=== PATIENT | male | born 1960 | race Caucasian/White ===

== ENCOUNTER 2024-12-27 07:54 | Outpatient (REF) | payer OTHER, SELFPAY ==
--- OUTSIDE RECORDS SUMMARY | 2024-12-27 07:59 | XMS_ITS | Encounter Summary ---
Author Organization [facility] Address [address] [facility] [address] [place] [address] Phone Care Team Providers Care Home Health Attendant Name Role Phone Roderick Avina NP Primary Care Provide r Encounter Details Date Type Department Care Team (Late st Contact Info) Description 02/24/2024 Procedure Pass [facility] [address] [place] [address] Social History Tobacco Use Types Packs/Day Years Used Date Smoking Tobacco: Never Smokeless Tobacco: Never Education Answer Date Recorded Are you interested in more education? Not on maximiliano e 02/16/2024 Are you concerned about learning? Not on file 02/16/2024 No 02/16/2024 No 02/16/2024 Food Answer Date Recorded Within the past 6 months we worried whether our food would run out before we got money to buy more. Never True 02/24/2024 Within the past 6 months the food we bought just didn't last and we didn't have enough money to get more. Never True Residential Stability Answer Date Recor ded What is your housing situation today? I have cleve sing 02/24/2024 How many times have you move d in the past 12 months? Zero (I did not move) 02/24/2024 Paying for Meds Answer Date Recorded Do you have trouble paying for medicines? No 02/24/2024 Paying Utility Bills Answer Date Record ed Do you have trouble paying your heating or elect ricity bill? No 02/24/2024 Transportation Answer Date Recorded Has the lack of transportati on kept you from medical appointments or from getting medications? No 02/24/2024 Digital Access Answer Date Recorded No 02/24/2024 Yes 02/24/2024 Do you have reliable internet access at home? Ye s 02/24/2024 Do you have a device (e.g., phone, tablet, computer) with a working camera? Yes 02/24/2024 Intimate Partner Violence Answer Date R ecorded Are you denied basic needs s uch as food, clothing, or medical care? No 02/24/2024 In the past 12 months have y ou been in a relationship with a person who hurts, threatens, or tries to control you? No 02/24/2024 Are you denied basic needs s uch as food, clothing, or medical care? No 02/24/2024 In the past 12 months have y ou been in a relationship with a person who hurts, threatens, or tries to control you? No 02/24/2024 Sex and Gender Information Value Date Recorded Sex Assigned at Not on file Gender Identity Not on file Sexual Orientation Not on file documented as of this encounter Plan of Treatment Upcoming Encounters Date Type Department Care Team (Late st Contact Info) Description 01/03/2025 8:45 AM EDT Office Visit [facility] [address] [address] Sukh Salamanca DO [address] [place] [phone] [email or web address] documented as of this encounter Visit Diagnoses Not on filedocumented in this encounter Care Teams Home Health Attendant Relationship Specialty Start Date End Date Roderick Avina NP [address] [place] [address] PCP - General Nurse Practitioner 02/16/24 documented as of this encounter Additional Source Comments The information contained in this document represents components of the legal health record. It is not the complete legal health record.[facility]
--- OUTSIDE RECORDS SUMMARY | 2024-12-27 07:59 | XMS_ITS ---
Author Name [facility] [facility] Address [address] [place] [address] Care Team Providers Care Mechanical Lead Name Role Phone RENEE POWERS Primary Care Provider Unavaila ble Selected Encounter This section includes the information on record at [place] for the Encounter. Date/Time Encounter Type Encounter Description Reason Provider Source Nov 18, 2024 10:00 AM TYMPANOMETRY AUDIOLOGY ICD-10-CM H90.3 Sensorineural hearing loss, bilateral GARCIA,KIMBERL Y ALLEY IHE Encounter Template Text not used by [place] Assessments - Encounter Diagnoses This section includes the primary and secondary diagnoses documented for the Encounter. Date/Time Primary/Secondary Diagnosis Diagnosis Name Provider Source Nov 18, 2024 10:49 AM PRIMARY Sensorineural hearing loss, bilateral GARCIA,KIMBERL Y ALLEY [facility] Plan of Treatment: Future Appointments (+ 6 months) and Future Tests (+/- 45 days) The Plan of Treatment section includes future care activities for the patient from all [place] treatmentfacilities. This section includes future appointments and future orders which are active, pending or scheduled. Future Appointments This section includes appointments that were scheduled to occur 6 months from the date of the Encounter, up to a maximum of 20 appointments. The data comes from all [place] treatment facilities. Appointment Date/Time Appointment Type Appointme nt Facility Name Dec 09, 2024 09:30 AM [place] [facility] [place] Dec 09, 2024 10:30 AM [place] [facility] [place] [facility] Dec 21, 2024 10:30 AM [place] [facility] [place] [facility] Dec 27, 2024 08:15 AM [place] [facility] [place] [facility] January 31, 2025 09:00 AM [place] [facility] [place] [facility] Active, Pending, and Scheduled Orders This section includes a listing of several types of active, pending, and scheduled orders, including clinic medications orders, diagnostic test orders, procedure orders and consult orders; where the start date of the order is 45 days before the date of the Encounter or 45 days after the date of theEncounter. The data comes from all [place] treatment facilities. Test Date/Time Test Type Test Details Facility Name Oct 26, 2024 11:47 AM Consult Order [facility] Cons Classification Control Clerk's Choice [place] [facility] [place] [facility] Nov 18, 2024 10:50 AM Consult Order OTOLARYNGO LOGY/ENT ONE Cons Classification Control Clerk's Choice [facility] [place] [facility] Nov 29, 2024 07:45 AM Consult Order [facility]NEUROLOGY Cons Classification Control Clerk's Choice [facility] [place] [facility] Dec 21, 2024 11:01 AM Consult Order [facility]-OPTOMETRY ROUTINE EYE EXAM Cons Classification Control Clerk's Choice [facility] [place] [facility] Dec 21, 2024 11:01 AM Consult Order [facility]-UROLOGY Cons Classification Control Clerk's Choice [facility] [place] [facility] Dec 21, 2024 11:01 AM Consult Order [facility]-CUSTOMS AND IMMIGRATION OFFICER Cons Classification Control Clerk's Choice [place] [facility] [place] [facility] Lab Results: +/- 30 days of the encounter This section includes the Chemistry and Hematology Lab Results on record with [place] for the patient. Radiology Reports and Pathology Reports are provided separately, in subsequent sections. Lab Results This section contains the Chemistry/Hematology Results that were resulted 30 days before or 30 daysafter the date of the Encounter. Date/Time Source Result Type Result - Unit Interpretation Reference Range Specimen Type Comment Dec 09, 2024 11:16 AM [place] [facility] [place] [facility] CBC BLOOD Specimen Type: BLOOD No comment entered. Ordering Provider: RENEE POWERS Report Released Date/Time: Dec 09, 2024 10:01 AM Reporting Lab: [facility] [address] [facility] [address] Performing Lab: [facility] [address] [facility] [address] WBC 7.37 10*3/uL 4.50-11.00 RBC 4.64 10*6/uL 4.23-5.66 HGB 14.2 g/dL 12.8-17 HCT 41.5 39.2-50.4 MCV 89.4 fL 82-99 MCHC 34.2 g/dL 30.8-35.1 PLT 239 10*3/uL 140-360 MPV 9.8 fL 9.2-12.4 RDW-CV 12.6 12.0-16.0 MCH 30.6 pg 26.2-32.6 Dec 09, 2024 11:16 AM [facility] BASIC METABOLIC PANEL (non-fasting) SERUM Spe cimen Type: SERUM No comment entered. Ordering Provider: RENEE POWERS Report Released Date/Time: Dec 09, 2024 10:01 AM Reporting Lab: [facility] [address] [facility] [address] Performing Lab: [address] [address] UREA NITROGEN 16 mg/dL 7-25 GLUCOSE 100 mg/dL 65-100 SODIUM 139 mmol/L 135-145 POTASSIUM 4.8 mmol/L 3.5-5.0 CHLORIDE 107 mmol/L 100-110 CO2 22 meq/L 20-30 CALCIUM 9.1 mg/dL 8.5-10.2 CREATININE, Serum 0.88 mg/dL 0.50-1.40 eGFR(CKD-EPI 2020) >90 mL/min >60 Dec 09, 2024 11:16 AM [facility] LIPID PANEL, NON FASTING SERUM Specimen Type: SERUM No comment entered. Ordering Provider: RENEE POWERS Report Released Date/Time: Dec 09, 2024 10:01 AM Reporting Lab: [facility] [address] [facility] [address] Performing Lab: [facility] [address] [facility] [address] CHOLESTEROL 120 mg/dL TRIGLYCERIDE 44 mg/dL 0-150 LDL calculated 37 mg/dL 0-129 CHOL/HDL 1.6 HDL CHOLESTEROL 74 mg/dL H 40-60 Dec 09, 2024 11:[address] [facility] LIVER FUNCTION SERUM Specimen Type: SERUM No comment entered. Ordering Provider: RENEE POWERS Report Released Date/Time: Dec 09, 2024 10:01 AM Reporting [facility] [address] [address] Performing Lab: [address] [address] PROTEIN,TOTAL 7.6 g/dL 6.0-8.3 ALBUMIN 4.2 g/dL 3.5-5.0 ALKALINE PHOSPHATASE 63 U/L 40-150 AST 32 U/L 5-34 ALT 37 U/L BILIRUBIN, TOTAL 0.5 mg/dL 0.2-1.2 Dec 09, 2024 11:16 AM [facility] PSA SERUM Specimen Type: SERUM No comment entered. Ordering Provider: RENEE POWERS Report Released Date/Time: Dec 09, 2024 10:01 AM Reporting Lab: [address] [address] Performing Lab: [facility] [address] PSA 4.52 ng/mL H 0.00-4.00 Dec 09, 2024 11:16 AM [facility] VITAMIN B12 SERUM Specimen Type: SERUM No comment entered. Ordering Provider: RENEE POWERS Report Released Date/Time: Dec 09, 2024 10:01 AM Reporting Lab: [facility] [address] [facility] [address] Performing Lab: [facility] [address] VITAMIN B12 1096 pg/mL H 200-900 Social History: Smoking Status (Most current) and Tobacco Use (All prior to encounter date) This section includes the most current, and the historical, smoking and tobacco- related health factors from the [place] facility where the Encounter took place. Current Smoking Status This section includes the most current smoking, or tobacco-related health factor, from the [place] facility where the Encounter took place. Date/Time Current Smoking Status Comment Facil ity Jun 22, 2024 11:00 AM [facility]-TOBACCO NEVER USED [facility] [place] [facility] Tobacco Use History This section includes a history of the smoking, or tobacco-related health factors, that were collected on or before the date of the Encounter. The data comes from the [place] facility where the Encounter took place. Date/Time Smoking Status/Tobacco Use Comment F acility Jul 17, 2023 11:00 AM VA-TOBACCO NEVER USED [facility] [place] [facility] Jul 18, 2022 08:30 AM VA-TOBACCO NEVER USED [facility] [place] [facility] Mar 27, 2021 11:30 AM VA-TOBACCO NEVER USED [facility] [place] [facility] Nov 29, 2019 08:24 AM VA-TOBACCO NEVER USED [facility] [place] [facility] Sep 24, 2018 07:45 AM VA-TOBACCO NEVER USED [facility] [place] [facility] Encounter Notes: All associated encounter notes This section contains the clinical notes associated to the Encounter. Date/Time Encounter Note(s) Provider Source Nov 18, 2024 07:27 AM AUDIOLOGY E & M NOTE: LOCAL TITLE: AUDIOLOGY CLINIC STANDARD TITLE: AUDIOLOGY E & M NOTE DATE OF NOTE: NOV 18, 2024@07:27 ENTRY DATE: NOV 18, 2024@07:27:25 AUTHOR: CALEB GARCIA COSIGNER: URGENCY: STATUS: COMPLETED Dx CODE: H90.3-Sensorineural Hearing Loss, Bilateral APPOINTMENT TYPE: Hearing Evaluation BACKGROUND/HISTORY: was seen 11/18/24 for an initial hearing evaluation appointment. [facility] reports he is here to get a baseline hearing test. His tells him he has the television too loud, however he denies any hearing difficulties. He does not notice a difference in hearing between the ears. He reports occasional bilateral tinnitus and denies concerns of vertigo. He denies a history of ear infections or surgeries on the ears. 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 He denies occupational noise exposure. He is positive for recreational noise exposure (target shooting, motorcycles, hunting). ASSESMENT: Results of today's testing are as follows: Otoscopy was WNL bilaterally. Normal tympanograms obtained bilaterally. Pure tone audiometric testing under headphones in the right ear revealed hearing WNL through 3 kHz sloping to a moderate SNHL. Testing in the left ear revealed hearing WNL through 2 kHz sloping to a severe SNHL. Rechecked with inserts. SRT WORD RECOGNITION (Recorded [place] [facility] / Word List) Right 10dBHL 96% @ 60dBHL/35dBm Left 15dBHL 100% @ 60dBHL/35dBm CLINICAL IMPRESSIONS: Asymmetrical sensorineural hearing loss, left ear poorer. [facility] is NOT interested in amplification, however consult with ENT is still recommended. EDUCATION/COUNSELING: The patient was counseled re: today's hearing test results. He demonstrated satisfactory understanding of the education and plan, and was given the opportunity to ask questions throughout today's visit. PLAN: 1. ENT consult placed due to asymmetrical sensorineural hearing loss, left ear poorer. 2. Hearing re-evaluation in 3-5 years, or sooner if change in hearing occurs. * Patient Education Education provided on the following topics: Hearing test results Education provided to: P Response to Education: VU [place] Patient P Family F Significant Other SO Verbalizes Understanding VU Returns Demonstration RD Performs Independently PI Lacks Comprehension LC Refused Education RE Not Applicable NA * /rain/ CALEB GARCIA STAFF MACHINE II TRIMMER Signed: 11/18/2024 10:49 CALEB GARCIA [facility] [place] [facility]
--- OUTSIDE RECORDS SUMMARY | 2024-12-27 07:59 | XMS_ITS | Encounter Summary ---
Author Organization [facility] Address [address] [facility] [address] [place] [address] Phone Care Team Providers Care Program Trainer Name Role Phone Roderick Avina NP Primary Care Provide r Encounter Details Date Type Department Care Team (Late st Contact Info) Description 02/24/2024 Procedure Pass [facility], [address] [address] Social History Tobacco Use Types Packs/Day Years [...] Description 01/03/2025 8:45 AM EDT Office Visit [facility] [address] [place] [phone] Sukh Salamanca DO [address] [address] [email or web address] documented as of this encounter Visit Diagnoses Not on filedocumented in this encounter Care Teams Program Trainer Relationship Specialty Start Date End Date Roderick Avina NP [address] [place] [address] PCP - General Nurse Practitioner 02/16/24 documented as of this encounter Additional Source Comments The information contained in this document represents components of the legal health record. It is not the complete legal health record.[facility]
--- OUTSIDE RECORDS SUMMARY | 2024-12-27 07:59 | XMS_ITS | Encounter Summary ---
Author Organization [facility] Address [address] [facility] [address] [place] [address] Phone Care Team Providers Care Supervisor Public Message Service Name Role Phone Roderick Avina NP Primary Care Provide r Encounter Details Date Type Department Care Team (Late st Contact Info) Description 02/24/2024 Procedure Pass [facility], Ct Scan - [address] [address] Social History Tobacco Use Types Packs/Day Years [...] Description 01/03/2025 8:45 AM EDT Office Visit [facility] [address] [place] [address] Sukh Salamanca DO [address] [place] [address] [email or web address] documented as of this encounter Visit Diagnoses Not on filedocumented in this encounter Care Teams Supervisor Public Message Service Relationship Specialty Start Date End Date Roderick Avina NP [address] [place] [address] PCP - General Nurse Practitioner 02/16/24 documented as of this encounter Additional Source Comments The information contained in this document represents components of the legal health record. It is not the complete legal health record.[facility]
--- OUTSIDE RECORDS SUMMARY | 2024-12-27 07:59 | XMS_ITS | Encounter Summary ---
Author Name [facility] Address [address] [place] [address] Care Team Providers Care Clinical Dermatologist Name Role Phone RODERICK AVINA Primary Care Provider Unavaila ble Selected Encounter This section includes the information on record at [facility] for the Encounter. Date/Time Encounter Type Encounter Description Reason Provider Source Nov 14, 2024 08:00 AM SELF CARE MNGMENT TRAINING OCCUPATIONAL THERAPY ICD-10-CM M79.602 Pain in left arm MADELINE JEAN BAPTISTE E IHE Encounter Template Text not used by [place] Assessments - Encounter Diagnoses This section includes the primary and secondary diagnoses documented for the Encounter. Date/Time Primary/Secondary Diagnosis Diagnosis Name Provider Source Nov 14, 2024 11:37 AM PRIMARY Pain in left arm MADELINE JEAN BAPTISTE [facility] Plan of Treatment: Future Appointments (+ 6 months) and Future Tests (+/- 45 days) The Plan of Treatment section includes future care activities for the patient from all [place] treatmentfacilities. This section includes future appointments and future orders which are active, pending or scheduled. Future Appointments This section includes appointments that were scheduled to occur 6 months from the date of the Encounter, up to a maximum of 20 appointments. The data comes from all [place] treatment facilities. Appointment Date/Time Appointment Type Appointme nt Facility Name Nov 18, 2024 10:00 AM [facility] [place] [facility] Dec 09, 2024 09:30 AM [facility] [place] [facility] Dec 09, 2024 10:30 AM [facility]IC[facility] [place] [facility] Dec 21, 2024 10:30 AM [facility]ATORY [facility] [place] [facility] Dec 27, 2024 08:15 AM [facility]ULATORY [facility] MEDIC[facility] [place] [facility] January 31, 2025 09:00 AM AMBULATORY - MEDICINE [facility] [place] [facility] Active, Pending, and Scheduled Orders This section includes a listing of several types of active, pending, and scheduled orders, including clinic medications orders, diagnostic test orders, procedure orders and consult orders; where the start date of the order is 45 days before the date of the Encounter or 45 days after the date of theEncounter. The data comes from all [place] treatment facilities. Test Date/Time Test Type Test Details Facility Name Oct 26, 2024 11:47 AM Consult Order COMM[facility]ITY [facility]-MRI [facility] [employer] Electrical Engineer's Choice [facility] [place] [facility] Nov 18, 2024 10:50 AM Consult Order OTOLARYNGO LOGY/ENT ONE Cons [employer] Electrical Engineer's Choice [facility] [place] [facility] Nov 29, 2024 07:45 AM Consult Order [facility]-NEUROLOGY Cons [employer]electric Plant Electrical Engineer's Choice [facility] [place] [facility] Dec 21, 2024 11:01 AM Consult Order [facility]-OPTOMETRY ROUTINE EYE EXAM Cons [employer] Electrical Engineer's Choice [facility] [place] [facility] Dec 21, 2024 11:01 AM Consult Order COMM[facility]ITY [facility]-UROLOGY [employer] Electrical Engineer's Choice [facility] [place] [facility] Dec 21, 2024 11:01 AM Consult Order [facility] DEADENER Cons [employer] Plant Electrical Engineer's Choice [facility] [place] [facility] Lab Results: +/- 30 days of the encounter This section includes the Chemistry and Hematology Lab Results on record with [facility] for the patient. Radiology Reports and Pathology Reports are provided separately, in subsequent sections. Lab Results This section contains the Chemistry/Hematology Results that were resulted 30 days before or 30 daysafter the date of the Encounter. Date/Time Source Result Type Result - Unit Interpretation Reference Range Specimen Type Comment Dec 09, 2024 11:16 AM [facility] CBC BLOOD Specimen Type: BLOOD No comment entered. Ordering Provider: RODERICK AVINA Report Released Date/Time: Dec 09, 2024 10:01 AM Reporting Lab: [facility] [address] [address] Performing Lab: [facility] [address] [facility] [address] WBC 7.37 10*3/uL 4.50-11.00 RBC 4.64 10*6/uL 4.23-5.66 HGB 14.2 g/dL 12.8-17 HCT 41.5 39.2-50.4 MCV 89.4 fL 82-99 MCHC 34.2 g/dL 30.8-35.1 PLT 239 10*3/uL 140-360 MPV 9.8 fL 9.2-12.4 RDW-CV 12.6 12.0-16.0 MCH 30.6 pg 26.2-32.6 Dec 09, 2024 11:16 AM [facility] BASIC METABOLIC PANEL (non-fasting) SERUM Spe cimen Type: SERUM No comment entered. Ordering Provider: RODERICK AVINA Report Released Date/Time: Dec 09, 2024 10:01 AM Reporting Lab: [facility] [address] [facility] [address] Performing Lab: [facility] [address] [facility] [facility] [address] UREA NITROGEN 16 mg/dL 7-25 GLUCOSE 100 mg/dL 65-100 SODIUM 139 mmol/L 135-145 POTASSIUM 4.8 mmol/L 3.5-5.0 CHLORIDE 107 mmol/L 100-110 CO2 22 meq/L 20-30 CALCIUM 9.1 mg/dL 8.5-10.2 CREATININE, Serum 0.88 mg/dL 0.50-1.40 eGFR(CKD-EPI 2020) >90 mL/min >60 Dec 09, 2024 11:16 AM [facility] LIPID PANEL, NON FASTING SERUM Specimen Type: SERUM No comment entered. Ordering Provider: RODERICK AVINA Report Released Date/Time: Dec 09, 2024 10:01 AM Reporting Lab[facility] [address] [facility] [address] Performing Lab: [facility] [address] CHOLESTEROL 120 mg/dL TRIGLYCERIDE 44 mg/dL 0-150 LDL calculated 37 mg/dL 0-129 CHOL/HDL 1.6 HDL CHOLESTEROL 74 mg/dL H 40-60 Dec 09, 2024 11:16 AM [facility] LIVER FUNCTION SERUM Specimen Type: SERUM No comment entered. Ordering Provider: RODERICK AVINA Report Released Date/Time: Dec 09, 2024 10:01 AM Reporting Lab: [facility] [address] [address] Performing Lab: [address] [address] PROTEIN,TOTAL 7.6 g/dL 6.0-8.3 ALBUMIN 4.2 g/dL 3.5-5.0 ALKALINE PHOSPHATASE 63 U/L 40-150 AST 32 U/L 5-34 ALT 37 U/L BILIRUBIN, TOTAL 0.5 mg/dL 0.2-1.2 Dec 09, 2024 11:16 AM [facility] PSA SERUM Specimen Type: SERUM No comment entered. Ordering Provider: RODERICK AVINA Report Released Date/Time: Dec 09, 2024 10:01 AM Reporting Lab: [facility] [address] [facility]: [facility] [address] PSA 4.52 ng/mL H 0.00-4.00 Dec 09, 2024 11:16 AM [facility] VITAMIN B12 SERUM Specimen Type: SERUM No comment entered. Ordering Provider: RODERICK AVINA Report Released Date/Time: Dec 09, 2024 10:01 AM Reporting Lab: [facility] [address] Performing Lab: [facility] [place] [facility] [address] [facility] [address] VITAMIN B12 1096 pg/mL H 200-900 Social History: Smoking Status (Most current) and Tobacco Use (All prior to encounter date) This section includes the most current, and the historical, smoking and tobacco- related health factors from the [place] facility where the Encounter took place. Current Smoking Status This section includes the most current smoking, or tobacco-related health factor, from the [place] facility where the Encounter took place. Date/Time Current Smoking Status Comment Facil ity Jun 22, 2024 11:00 AM [facility]-TO[facility]ACCO NEVER USED [facility] Tobacco Use History This section includes a history of the smoking, or tobacco-related health factors, that were collected on or before the date of the Encounter. The data comes from the [place] facility where the Encounter took place. Date/Time Smoking Status/Tobacco Use Comment F acility Jul 17, 2023 11:00 AM VA-TOBACCO NEVER USED [facility] [place] [facility] Jul 18, 2022 08:30 AM VA-TOBACCO NEVER USED [facility] [place] [facility] Mar 27, 2021 11:30 AM VA-TOBACCO NEVER USED [facility] [place] [facility] Nov 29, 2019 08:24 AM VA-TOBACCO NEVER USED [facility] [place] [facility] Sep 24, 2018 07:45 AM VA-TOBACCO NEVER USED [facility] [place] [facility] Encounter Notes: All associated encounter notes This section contains the clinical notes associated to the Encounter. Date/Time Encounter Note(s) Provider Source Nov 14, 2024 07:13 AM OCCUPATIONAL MEDIC INE CONSULT: [facility] TITLE: CONSULT REPORT/OCCUPATIONAL THERAPY STANDARD TITLE: OCCUPATIONAL MEDICINE CONSULT DATE OF NOTE: NOV 14, 2024@07:13 ENTRY DATE: NOV 14, 2024@07:13:49 AUTHOR: MADELINE JEAN BAPTISTE COSIGNER: RODERICK AVINA URGENCY: STATUS: COMPLETED Initial Evaluation date: Nov Progress Note Date: Treatment #: eval Treatment time: 40 minutes Diagnosis: Pain in left Arm(ICD-10-CM M79.602) Provider: Fabrice OT Treatment Precautions: n/a Patient identified by full name and date of * S: Mr. Luu is a 64 y/o [facility] [place] who was referred to OT for L UE paresthesia's. He was seen in the OT clinic on 11/14/2024. PMH: Active problems - Computerized Problem List is the source for the followin. Cervical radiculopathy 2. Carotid artery stenosis 3. Erectile Dysfunction ([facility] [id number]) 4. GERD - Gastro-Esophageal Reflux Disease ([facility] [id number]) 5. Vitamin B12 Deficiency ([facility] [id number]) 6. Elevated PSA 7. Abnormal glucose level 8. HTN - Hypertension ([facility] [id number]) 9. Low Back Pain ([facility] [id number]) 10. Obesity ([facility] [id number]) 11. Family history of cancer of colon 12. Family history of prostate cancer 13. Colonoscopy normal IVONNE: pt reports that his L hand is very weak and there is discoordination. pt reports that this has been going on for 6 weeks. he woke w/ a really sharp pain in his L shoulder blade. this persisted. he had a massage, ordered a traction device. he reports that the numbness and tingling is sporadic and it seems to come from his shoulder radiating along the triceps. traction made it worse. Imaging: none in CPRS of c-spine/hand-pt reports having MRI of the c-spine yesterday. Pain Level: denies pain currently O: Pt is R hand dominant. 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 He enjoys fishing. Works around the house, fire wood. 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 59# (norm:85#) 15# (norm:80#) 2. 50# 15# 3. 44# 15# Prehension Strength (pinch meter/pounds per pressure) [R] [L] lat: 25# (norm: 19#) 4# (norm: 19#) 2 pt: 14# (norm: 14#) 2# (norm: 13#) 3 pt: 21# (norm: 18#) 1# (norm: 19#) Sensation: pt reports that his hand just feels different, weak. he doesn't currently have paresthesia's, but does experience them nightly. TX: *discussed ordering an EMG/NCV test in order to determine location of nerve damage as well as severity. pt was interested in this as well. *issued pt RIGHT medium wrist cock up splint; instructed to wear during sleep only. pt was able to don/doff I'ly. *issued pt scap squeezes and pec stretch; pt able to r/d and v/u. he understands that if either exercise reproduce pain or paresthesia's, to discontinue. Access Code: [email or web address] URL: [email or web address] Date: 11/14/2024 Prepared by: [facility] Exercises - Seated Scapular Retraction - 1 x daily - 7 x weekly - 3 sets - 10 reps - Doorway Pec Stretch at 60 Elevation - 1 x daily - 7 x weekly - 3 sets - 3 reps - 30 hold ASSESSMENT: Rolando is a 64 y/o male who presents to the OT clinic w/ s/s of brachial plexopathy versus c-radiculopathy as evidenced by pt report, clinical presentation and negative provocative testing. Ulnar nerve distribution is definitely affected d/t severe interosseous atrophy and positive wartenberg's sign. His L neonatal icu coordinator and pinch are significantly reduced as compared to norms. He had a MRI of the c-spine yesterday and is currently awaiting results. Discussed obtaining an EMG/NCV and pt was interested in this as well. Discussed possible referral to PT in the near future once MRI results are reported back. PLAN: No further f/u scheduled at this time. The pt was provided w/ this newswriter's contact information in the event he had any additional questions or concerns. Pt was in agreement w/ this POC. GOALS: 1. pt will be compliant w/ nocturnal splinting 2. pt will report improved paresthesia's/weakness since implementing nocturnal splinting The practitioner's co-signature on this note signifies agreement with plan of care and clinical diagnosis code. /rain/ Madeline Jean Baptiste, MS OTR/L, CHT Occupational Therapist Signed: 11/14/2024 11:39 /rain/ Roderick Avina DNP, CLINICAL RESOURCE COORDINATOR-BC, CNL Primary Care Nurse Practitioner Cosigned: 11/14/2024 12:40 MADELINE JEAN BAPTISTE [facility]
--- OUTSIDE RECORDS SUMMARY | 2024-12-27 07:59 | XMS_ITS ---
Author Name [facility] Organization [facility] Address [address] [place] [address] Care Team Providers Care Accountant Machine Processing Name Role Phone RODERICK AVINA Primary Care Provider Unavaila ble Selected Encounter This section includes the information on record at [facility] for the Encounter. Date/Time Encounter Type Encounter Description Reason Provider Source Dec 21, 2024 10:30 AM OFFICE O/P EST [facility] 40 MIN PRIMARY CARE/MEDICINE ICD-10-CM N40.0 Benign prostatic hyperplasia without lower urinry tract symp KVNG AVINA AM Encounter Template Text not used by [facility] Assessments - Encounter Diagnoses This section includes the primary and secondary diagnoses documented for the Encounter. Date/Time Primary/Secondary Diagnosis Diagnosis Name Provider Source Dec 21, 2024 11:00 AM PRIMARY Benign prostatic hyperplasia without lower urinry tract symp EMERY AVINA [facility] [place] [facility] Dec 21, 2024 11:00 AM SECONDARY Cervical disc disorder w radiculopathy, unsp cervical region EMERY AVINA [facility] [place] [facility] Dec 21, 2024 11:00 AM SECONDARY Elevated prostate specific antigen [PSA] EMERY AVINA [facility] [place] [facility] Dec 21, 2024 11:00 AM SECONDARY Essential (primary) hypertension EMERY AVINA [facility] Dec 21, 2024 11:00 AM SECONDARY Gastro-esophageal reflux disease without esophagitis AVINA,WILL RENU [facility] Dec 21, 2024 11:00 AM SECONDARY Occlusion and stenosis of unspecified carotid artery AVINA,WILL RENU [facility] Plan of Treatment: Future Appointments (+ 6 months) and Future Tests (+/- 45 days) The Plan of Treatment section includes future care activities for the patient from all [facility] [place] This section includes future appointments and future orders which are active, pending or scheduled. Future Appointments This section includes appointments that were scheduled to occur 6 months from the date of the Encounter, up to a maximum of 20 appointments. The data comes from all [facility] facilities. Appointment Date/Time Appointment Type Appointme nt Facility Name Dec 27, 2024 08:15 AM AMBULATORY - MEDICINE [facility] January 31, 2025 09:00 AM AMBULATORY MEDICINE [facility] Jun 22, 2025 10:30 AM AMBULATORY MEDICINE [facility] Active, Pending, and Scheduled Orders This section includes a listing of several types of active, pending, and scheduled orders, including clinic medications orders, diagnostic test orders, procedure orders and consult orders; where the start date of the order is 45 days before the date of the Encounter or 45 days after the date of theEncounter. The data comes from all [facility]. Test Date/Time Test Type Test Details Facility Name Nov 18, 2024 10:50 AM Consult Order OTOLARYNGO LOGY/ENT ONE [employer] [facility] Nov 29, 2024 07:45 AM Consult Order COMMUNITY [facility]ARE-NEUROLOGY [facility] [employer] [facility] Dec 21, 2024 11:01 AM Consult Order COMMUNITY CARE-OPTOMETRY ROUTINE EYE EXAM [facility] [employer] Owner [employer] Choice [facility] Dec 21, 2024 11:01 AM Consult Order COMMUNITY CARE-UROLOGY [facility] [employer] Owner [employer] Driver[employer] Choice [facility] Dec 21, 2024 11:01 AM Consult Order COMMUNITY CARE-MEDICAL BILLING ASSOCIATE [employer] Owner Operator [employer] Driver[employer] Choice [facility] Lab Results: +/- 30 days of the encounter This section includes the Chemistry and Hematology Lab Results on record with [facility] for the patient. Radiology Reports and Pathology Reports are provided separately, in subsequent sections. Lab Results This section contains the Chemistry/Hematology Results that were resulted 30 days before or 30 daysafter the date of the Encounter. Date/Time Source Result Type Result - Unit Interpretation Reference Range Specimen Type Comment Dec 09, 2024 11:16 AM [facility] CBC BLOOD Specimen Type: BLOOD No comment entered. Ordering Provider: RODERICK AVINA Report Released Date/Time: Dec 09, 2024 10:01 AM Reporting Lab: [address] [address] Performing Lab: [address] [address] WBC 7.37 10*3/uL 4.50-11.00 RBC 4.64 10*6/uL 4.23-5.66 HGB 14.2 g/dL 12.8-17 HCT 41.5 39.2-50.4 MCV 89.4 fL 82-99 MCHC 34.2 g/dL 30.8-35.1 PLT 239 10*3/uL 140-360 MPV 9.8 fL 9.2-12.4 RDW-CV 12.6 12.0-16.0 MCH 30.6 pg 26.2-32.6 Dec 09, 2024 11:16 AM [facility] BASIC METABOLIC PANEL (non-fasting) SERUM Spe cimen Type: SERUM No comment entered. Ordering Provider: RODERICK AVINA Report Released Date/Time: Dec 09, 2024 10:01 AM Reporting Lab: [address] [address] Performing Lab: [address] [address] UREA NITROGEN 16 mg/dL 7-25 GLUCOSE 100 mg/dL 65-100 SODIUM 139 mmol/L 135-145 POTASSIUM 4.8 mmol/L 3.5-5.0 CHLORIDE 107 mmol/L 100-110 CO2 22 meq/L 20-30 CALCIUM 9.1 mg/dL 8.5-10.2 CREATININE, Serum 0.88 mg/dL 0.50-1.40 eGFR(CKD-EPI 2020) >90 mL/min >60 Dec 09, 2024 11:16 AM [facility] LIPID PANEL, NON FASTING SERUM Specimen Type: SERUM No comment entered. Ordering Provider: RODERICK AVINA Report Released Date/Time: Dec 09, 2024 10:01 AM Reporting Lab: [facility] [address] [facility] [address] Performing Lab: [address] [address] CHOLESTEROL 120 mg/dL TRIGLYCERIDE 44 mg/dL 0-150 LDL calculated 37 mg/dL 0-129 CHOL/HDL 1.6 HDL CHOLESTEROL 74 mg/dL H 40-60 Dec 09, 2024 11:16 AM [facility] LIVER FUNCTION SERUM Specimen Type: SERUM No comment entered. Ordering Provider: RODERICK AVINA Report Released Date/Time: Dec 09, 2024 10:01 AM Reporting Lab: [address] [address] Performing Lab: [address] [address] PROTEIN,TOTAL 7.6 g/dL 6.0-8.3 ALBUMIN 4.2 g/dL 3.5-5.0 ALKALINE PHOSPHATASE 63 U/L 40-150 AST 32 U/L 5-34 ALT 37 U/L BILIRUBIN, TOTAL 0.5 mg/dL 0.2-1.2 Dec 09, 2024 11:16 AM [facility] PSA SERUM Specimen Type: SERUM No comment entered. Ordering Provider: RODERICK AVINA Report Released Date/Time: Dec 09, 2024 10:01 AM Reporting Lab: [address] [address] Performing Lab: [address] [address] PSA 4.52 ng/mL H 0.00-4.00 Dec 09, 2024 11:16 AM [facility] [place] [facility] VITAMIN B12 SERUM Specimen Type: SERUM No comment entered. Ordering Provider: RODERICK AVINA Report Released Date/Time: Dec 09, 2024 10:01 AM Reporting Lab: [facility] [place] [facility] [address] [facility] [address] Performing Lab: [facility] [place] [facility] [address] [facility] [address] VITAMIN B12 1096 pg/mL H 200-900 Vital Signs: All taken on the encounter date This section contains inpatient and outpatient Vital Signs collected on the date of the Encounter. Date/Time Temperature Pulse Blood Pressure Respiratory Rate SP02 Pain Height Weight Body Mass Index Source Dec 21, 2024 10:18 AM 98.3 70 128/82 20 99 0 71 210 29 [facility] [place] [facility] Social History: Smoking Status (Most current) and Tobacco Use (All prior to encounter date) This section includes the most current, and the historical, smoking and tobacco- related health factors from the [place] facility where the Encounter took place. Current Smoking Status This section includes the most current smoking, or tobacco-related health factor, from the [place] facility where the Encounter took place. Date/Time Current Smoking Status Comment Giulia ity Jun 22, 2024 11:00 AM VA-TOBACCO NEVER USED [facility] [place] [facility] Tobacco Use History This section includes a history of the smoking, or tobacco-related health factors, that were collected on or before the date of the Encounter. The data comes from the [place] facility where the Encounter took place. Date/Time Smoking Status/Tobacco Use Comment F acility Jul 17, 2023 11:00 AM VA-TOBACCO NEVER USED [facility] [place] [facility] Jul 18, 2022 08:30 AM VA-TOBACCO NEVER USED [facility] [place] [facility] Mar 27, 2021 11:30 AM VA-TOBACCO NEVER USED [facility] [place] [facility] Nov 29, 2019 08:24 AM VA-TOBACCO NEVER USED [facility] [place] [facility] Sep 24, 2018 07:45 AM VA-TOBACCO NEVER USED [facility] [place] [facility] Encounter Notes: All associated encounter notes This section contains the clinical notes associated to the Encounter. Date/Time Encounter Note(s) Provider Source Dec 21, 2024 10:47 AM PRIMARY CARE NURSE PRACTITIONER OUTPATIENT NOTE: LOCAL TITLE: NURSE PRACTITIONER OUTPATIENT NOTE STANDARD TITLE: PRIMARY CARE NURSE PRACTITIONER OUTPATIENT NOTE DATE OF NOTE: DEC 21, 2024@10:47 ENTRY DATE: DEC 21, 2024@10:47:13 AUTHOR: RODERICK AVINA COSIGNER: URGENCY: STATUS: COMPLETED Chief complaint: Patient is a 64 year old . HPI: Pleasant male [place] here to follow up. Allergies: DEMEROL, LISINOPRIL The following VA and Non-VA meds were reconciled with patient. The patient was educated on the use of the medications including indication and side effects. Active and Recently Outpatient Medications (excluding Supplies): Active Outpatient Medications Status 1) AMLODIPINE BESYLATE 10MG TAB TAKE ONE TABLET BY MOUTH ONCE ACTIVE DAILY FOR BLOOD PRESSURE/HEART, DO NOT TAKE WITH GRAPEFRUIT JUICE Indication: FOR HIGH BLOOD PRESSURE 2) CLOPIDOGREL BISULFATE 75MG TAB TAKE ONE TABLET BY MOUTH ONCE ACTIVE DAILY 3) CYANOCOBALAMIN 1000MCG TAB TAKE ONE TABLET BY MOUTH ONCE ACTIVE DAILY FOR VITAMIN SUPPLEMENTATION 4) DOXYCYCLINE HYCLATE 100MG TAB TAKE ONE TABLET BY MOUTH TWICE ACTIVE DAILY Indication: TICK 5) OMEPRAZOLE 20MG EC CAP TAKE ONE CAPSULE BY MOUTH EVERY ACTIVE MORNING 30 MINUTES BEFORE BREAKFAST 6) ROSUVASTATIN CA 40MG TAB TAKE ONE TABLET BY MOUTH ONCE DAILY ACTIVE FOR CHOLESTEROL Review of Systems: Constitutional: (-)for Fevers, chills, weakness, nights sweats On examination: 98.3 F [36.8 C] (12/21/2024 10:18)128/82 (12/21/2024 10:18)70 (12/21/2024 10:18)20 (12/21/2024 10:18)0 (12/21/2024 10:18)BMI: 29.4210 lb [95.25 kg] (12/21/2024 10:18) is alert and oriented X3 Cardiovasc: 2plus carotids without bruits, no JVD Heart Reguler rate and rhythm NL S1S2 no S3 or murmur Respiration: Normal respiratory effort, lungs clear ABD: Benign normal active bowel sounds no HSM no rebound or referred pain EXT: no clubbing, edema, or cyanosis All diagnostics from past month were reviewed with patient. Assessment/plan: Active problems - Computerized Problem List is the source for the followin. Benign Prostatic Hypertrophy without Outflow Obstruction - stable, follows [facility]. 2. Cervical radiculopathy - radiates to left arm with numbness, NCS scheduled, mri discussed, consult to physiatry. 3. Carotid artery stenosis - follows with Dr. Salamanca, surgery not advised, being monitored. Continues with plavix. 4. GERD - Gastro-Esophageal Reflux Disease - stable on PPI. 5. Elevated PSA - follows urology, for now, plan is monitor. Noted strong family history. 6. HTN - Hypertension - well controlled. Health Care Maintenance: declines flu vaccine. Today I spent 40 minutes on some or all of the following: chart review, history, physical examination, treatment planning, education and counseling of the patient/family/home visit field care manager, placing orders, communicating with other health care providers, completing health and wellness screenings (see below) and documentation in the electronic health record. Follow up visit in 6 mos. Medication Reconciliation: Outpatient: Has the patient been taking medications as documented in the EMLR? YES: The patient has been taking medications as documented in the EMLR. Essential Medication List for Review used to complete this medication reconciliation. INCLUDED IN THIS LIST: Alphabetical list of active outpatient prescriptions dispensed from this [facility] (local) and dispensed from another [place] or [facility]D facility (remote) as well as inpatient orders (local, pending and active), local clinic medications, locally documented non-VA medications, and local prescriptions that have or been discontinued in the past 90 days. - All changes in medications, including all non-VA/Herbal/OTC medications were entered into CPRS. - If there were any medications the patient should no longer take, they were discontinued. - The patient/caregiver was instructed to update this list, discard old lists, and take this list to the next appointment, whether with a VA or non-VA provider. /rain/ Roderick Avina DNP, TEST MANAGER-BC, CNL Primary Care Nurse Practitioner Signed: 12/21/2024 10:58 [facility]
--- OUTSIDE RECORDS SUMMARY | 2024-12-27 08:00 | XMS_ITS | Continuity of Care Document ---
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 It does not include entries that were removed or entered in error. Problem Status Onset Date Problem Type Date of Resolution Comments Source Abnormal glucose level Active Condition [facility] Amaurosis fugax Active Condition [facility] Benign Prostatic Hypertrophy without Outflow Obstruction (SCT 780373281) Active Condition [facility] Carotid artery stenosis Active Condition [facility] Cervical radiculopathy Active Condition [facility] Colonoscopy normal Active Condition Oct 11, 2018 Entered By: EMERY POWERS Comment: November 14, 2012 5 yr f/u due to family historyMar 02, 2019 Entered By: EMERY POWERS Comment: C-SCOPE 02/25/19 REPEAT FEBRUARY 2024 [facility] Elevated PSA Active Condition [facility] Erectile Dysfunction (SCT [id number]) Active Condition [facility] Family history of cancer of colon Active Condition Oct 11, 2018 Entered By: EMERY POWERS Comment: brother age 53Oct 11, 2018 Entered By: EMERY POWERS Comment: mom 94 recently diagnosed [facility] Family history of prostate cancer Active Condition Oct 11, 2018 Entered By: EMERY POWERS Comment: father 62 [facility] GERD - Gastro-Esophageal Reflux Disease (SCT [id number]) Active Condition [facility] HTN - Hypertension (SCT 16028870) Active Condition [facility] Low Back Pain (SCT [id number]) [facility] Condition [facility] FANNIE [facility] Obesity ([facility] [id number][facility] Active Condition [facility]ANNIE [facility] Vitamin B12 Deficiency ([facility] [id number]) [facility] Diagnosis: ICD-10-CM N40.0 Benign prostatic hyperplasia without lower urinry tract symp Active Diagnosis [facility] Diagnosis: ICD-10-CM S30.860A Insect bite (nonvenomous) of lower back and pelvis, init Active Diagnosis [facility] LEDY RN [facility] Diagnosis: ICD-10-CM Z71.89 Other specified counseling Active Diagnosis [facility] Diagnosis: ICD-10-CM H90.3 Sensorineural hearing loss, bilateral Active Diagnosis [facility] Diagnosis: ICD-10-CM M79.602 Pain in left arm Active Diagnosis [facility] Diagnosis: ICD-10-CM M50.10 Cervical disc disorder w radiculopathy, unsp cervical region Active Diagnosis [facility] Diagnosis: ICD-10-CM I65.29 Occlusion and stenosis of unspecified carotid artery Active Diagnosis [facility] Janette [facility] Diagnosis: ICD-10-CM R97.20 Elevated prostate specific antigen [PSA] Active Diagnosis [facility] Diagnosis: ICD-10-CM K21.9 Gastro-esophageal reflux disease without esophagitis Active [facility] Medications Combined list of outpatient medications from Department of Defense and Veterans Affairs facilities.Medications provided include 1) outpatient medications from the last 15 months, and 2) patient-reported medications. Medication Details Route Status Patient Instructions Prescription Expires Prescription Number Last Dispense Date Ordering Provider Order Date Order Qty Source AMLODIPINE BESYLATE 10MG TAB TAKE ONE TABLET BY MOUTH ONCE DAILY FOR BLOOD PRESSURE /HEART, DO NOT TAKE WITH GRAPEFRU IT JUICE ORAL SUSPEND ED 12/22/2025 [id number] RENEE POWERS 2024 90 [facility] AMLODIPINE BESYLATE 10MG TAB TAKE ONE TABLET BY MOUTH ONCE DAILY FOR BLOOD PRESSURE /HEART, DO NOT TAKE WITH GRAPEFRU IT JUICE ORAL DISCONT INUED 01/21/2025 [id number] 5 RENEE POWERS 2023 90 [facility] AMLODIPINE BESYLATE 5MG TAB TAKE ONE TABLET BY MOUTH ONCE DAILY FOR BLOOD PRESSURE /HEART, DO NOT TAKE WITH GRAPEFRU IT JUICE ORAL DISCONT INUED (EDIT) 07/17/2024 [id number] RENEE POWERS 2022 90 [facility] CLOPIDOGREL BISULFATE 75MG TAB TAKE ONE TABLET BY MOUTH ONCE DAILY ORAL SUSPEND ED 12/22/2025 [id number] 5 RENEE POWERS 2024 90 [facility] CLOPIDOGREL BISULFATE 75MG TAB TAKE ONE TABLET BY MOUTH ONCE DAILY ORAL DISCONT INUED 02/17/2025 [id number] 5 Susana PANTOJA 2023 90 [facility] CYANOCOBALA MIN 1000MCG TAB TAKE ONE TABLET BY MOUTH ONCE DAILY FOR VITAMIN SUPPLEME NTATION ORAL SUSPEND ED 12/22/2025 [id number] 5 RENEE POWERS 2024 90 [facility] CYANOCOBALA MIN 1000MCG TAB TAKE ONE TABLET BY MOUTH ONCE DAILY FOR VITAMIN SUPPLEME NTATION ORAL DISCONT INUED 01/21/2025 [id number] 5 RENEE POWERS 2023 90 [facility] DOXYCYCLINE HYCLATE 100MG TAB TAKE ONE TABLET BY MOUTH TWICE DAILY ORAL ACTIVE 01/08/2025 [id number] KIMBERLY SANTAMARIA 2024 20 [facility] OMEPRAZOLE 20MG CAP,EC TAKE ONE CAPSULE BY MOUTH EVERY MORNING 30 MINUTES BEFORE BREAKFAS T ORAL SUSPEND ED 12/22/2025 [id number] 5 RENEE POWERS 2024 [facility] OMEPRAZOLE 20MG CAP,EC TAKE ONE CAPSULE BY MOUTH EVERY MORNING 30 MINUTES BEFORE BREAKFAS T ORAL DISCONT INUED 01/21/2025 [id number] 5 RENEE POWERS 2023 90 [facility] OMEPRAZOLE 20MG CAP,EC TAKE ONE CAPSULE BY MOUTH EVERY MORNING 30 MINUTES BEFORE BREAKFAS T ORAL DISCONT INUED 03/03/2024 [id number] 4 RENEE POWERS 2022 90 [facility] ROSUVASTATI N CA 40MG TAB TAKE ONE TABLET BY MOUTH ONCE DAILY FOR CHOLESTE ROL ORAL SUSPEND ED 12/22/2025 [id number] 5 RENEE POWERS 2024 90 [facility] ROSUVASTATI N [place] 40MG TAB TAKE ONE TABLET BY MOUTH ONCE DAILY FOR CHOLESTE ROL ORAL DISCONT INUED 02/17/2025 [id number] Susana PANTOJA 2023 90 [facility] Allergies, Adverse Reactions, Alerts Combined list of allergies from Department of Defense and Veterans Affairs facilities. It does not include entries that were removed or entered in error. Substance Category Reaction Severity Reaction type Status Date Reported Comments Source DEMEROL Propensity to adverse reactions to drug (finding) Itching active 9 [facility] LISINOPRIL Propensity to adverse reactions to drug (finding) Fatigue active 3 [facility] Immunizations Combined list of available immunizations from the Department of Defense and Veterans Affairs facilities. Immunization Series Date Given Administered By Site Reaction Lot Number CVX Code Drug Guest Advisor Status Comments Source PNEUMOCOCCAL CONJUGATE PCV20, POLYSACCHARID E [id number] CONJUGATE, ADJUVANT, PF 2021 216 complet ed [facility] COVID-19 (MODERNA), MRNA, LNP-S, PF, 100 MCG/0.5ML DOSE OR 50 MCG/0.25ML DOSE 2 2021 207 complet ed MOD; [id number]; 2 [facility] COVID-19 (MODERNA), MRNA, LNP-S, PF, 100 MCG OR 50 MCG DOSE 2 2021 207 complet ed MOD; [id number]; 2 [facility] PNEUMOCOCCAL POLYSACCHARID E PPV23 2020 33 complet ed [facility] COVID-19 (JIE), VECTOR-NR, RS-AD26, PF, 0.5 ML 1 2020 212 complet ed [facility] ZOSTER RECOMBINANT 2 2018 187 complet ed [facility] ZOSTER RECOMBINANT 1 2018 187 complet ed [facility] TDAP 2018 115 complet ed Site: Left Deltoid [facility] [place] [facility] [facility] Results Combined list of recent chemistry, hematology and other laboratory results from Department of Defense and Veterans Affairs, ranging from 15 months to all on record, depending upon the facility. Order Name Results Value Reference Range Date Interpretation Specimen Comments Source CBC LEUKOCYTES [#/VOLUME] IN BLOOD BY AUTOMATED COUNT 7.37 10*3/uL 4.50 - 11.00 12/09 Specimen Type: BLOOD No comment entered. Ordering Provider: SHARLA POWERS Report Released Date/Time: Dec 09, 2024 10:01 AM Reporting Lab: [facility] [place] [facility] [address] [address] Performing Lab: [facility] [place] [facility] [address] [address] [facility] [place] [facility] CBC ERYTHROCYT ES [#/VOLUME] IN BLOOD BY AUTOMATED COUNT 4.64 10*6/uL 4.23 - 5.66 12/09 Specimen Type: BLOOD No comment entered. Ordering Provider: SHARLA POWERS Report Released Date/Time: Dec 09, 2024 10:01 AM Reporting Lab: [facility] [address] [address] Performing Lab: [facility] [address] [address] [facility] [facility] CBC HEMOGLOBIN [MASS/VOLU ME] IN BLOOD 14.2 g/dL 12.8 - 17 12/09 Specimen Type: BLOOD No comment entered. Ordering Provider: SHARLA POWERS Report Released Date/Time: Dec 09, 2024 10:01 AM Reporting Lab: [facility] [place] [facility] [address] [address] Performing Lab: [facility] [place] [facility] [address] [address] [facility] [place] [facility] CBC HEMATOCRIT [VOLUME FRACTION] OF BLOOD BY AUTOMATED COUNT 41.5 39.2 - 50.4 12/09 Specimen Type: BLOOD No comment entered. Ordering Provider: SHARLA POWERS Report Released Date/Time: Dec 09, 2024 10:01 AM Reporting Lab: [facility] [place] [facility] [address] [address] Performing Lab: [facility] [place] [facility] [address] [address] [facility] [place] [facility] CBC MCV [ENTITIC VOLUME] BY AUTOMATED COUNT 89.4 fL 82 - 99 12/09 Specimen Type: BLOOD No comment entered. Ordering Provider: SHARLA POWERS Report Released Date/Time: Dec 09, 2024 10:01 AM Reporting Lab: [facility] [place] [facility] [address] [address] Performing Lab: [facility] [place] [facility] [address] [address] [facility] [place] [facility] CBC MCHC [MASS/VOLU ME] BY AUTOMATED COUNT 34.2 g/dL 30.8 - 35.1 12/09 Specimen Type: BLOOD No comment entered. Ordering Provider: SHARLA POWERS Report Released Date/Time: Dec 09, 2024 10:01 AM Reporting Lab: [facility] [address] [address] Performing Lab: [facility] [address] [address] [facility] [place] [facility] CBC PLATELETS [#/VOLUME] IN BLOOD BY AUTOMATED COUNT 239 10*3/uL 140 - 360 12/09 Specimen Type: BLOOD No comment entered. Ordering Provider: SHARLA POWERS Report Released Date/Time: Dec 09, 2024 10:01 AM Reporting Lab: [facility] [place] [facility] [address] [address] Performing Lab: [facility] [place] [facility] [address] [address] [place] [facility] [facility] CBC PLATELET MEAN VOLUME [ENTITIC VOLUME] IN BLOOD BY AUTOMATED COUNT 9.8 fL 9.2 - 12.4 12/09 Specimen Type: BLOOD No comment entered. Ordering Provider: SHARLA POWERS Report Released Date/Time: Dec 09, 2024 10:01 AM Reporting Lab: [facility] [place] [facility] [address] [address] Performing Lab: [facility] [place] [facility] [address] [address] [facility] [place] [facility] CBC ERYTHROCYT E DISTRIBUTI ON WIDTH [RATIO] BY AUTOMATED COUNT 12.6 12.0 - 16.0 12/09 Specimen Type: BLOOD No comment entered. Ordering Provider: SHARLA POWERS Report Released Date/Time: Dec 09, 2024 10:01 AM Reporting Lab: [facility] [place] [facility] [address] [address] Performing Lab: [facility] [place] [facility] [address] [address] [facility] [place] [facility] CBC MCH [ENTITIC MASS] BY AUTOMATED COUNT 30.6 pg 26.2 - 32.6 12/09 Specimen Type: BLOOD No comment entered. Ordering Provider: SHARLA POWERS Report Released Date/Time: Dec 09, 2024 10:01 AM Reporting Lab: [facility] [place] [facility] [address] [address] Performing Lab: [facility] [place] [facility] [address] [address] [facility] [place] [facility] BASIC METABOLI C PANEL (non-fas ting) UREA NITROGEN [MASS/VOLU ME] IN SERUM OR PLASMA 16 mg/dL 7 - 25 12/09 Specimen Type: SERUM No comment entered. Ordering Provider: SHARLA POWERS Report Released Date/Time: Dec 09, 2024 10:01 AM Reporting Lab: [facility] [place] [address] [address] Performing Lab: [facility] [address] [address] [facility] BASIC METABOLI C PANEL (non-fas ting) GLUCOSE [MASS/VOLU ME] IN SERUM OR PLASMA 100 mg/dL 65 - 100 12/09 Specimen Type: SERUM No comment entered. Ordering Provider: SHARLA POWERS Report Released Date/Time: Dec 09, 2024 10:01 AM Reporting Lab: [facility] [place] [address] [address] Performing Lab: [facility] [place] [address] [address] [facility] [place] [facility] BASIC METABOLI C PANEL (non-fas ting) SODIUM [MOLES/VOL UME] IN SERUM OR PLASMA 139 mmol/L 135 - 145 12/09 Specimen Type: SERUM No comment entered. Ordering Provider: SHARLA POWERS Report Released Date/Time: Dec 09, 2024 10:01 AM Reporting Lab: [facility] [place] [address] [address] Performing Lab: [facility] [place] [address] [address] [facility] [place] [facility] BASIC METABOLI C PANEL (non-fas ting) POTASSIUM [MOLES/VOL UME] IN SERUM OR PLASMA 4.8 mmol/L 3.5 - 5.0 12/09 Specimen Type: SERUM No comment entered. Ordering Provider: SHARLA POWERS Report Released Date/Time: Dec 09, 2024 10:01 AM Reporting Lab: [facility] [place] [address] [address] Performing Lab: [place] [facility] [facility] [address] [address] [facility] BASIC METABOLI C PANEL (non-fas ting) CHLORIDE [MOLES/VOL UME] IN SERUM OR PLASMA 107 mmol/L 100 - 110 12/09 Specimen Type: SERUM No comment entered. Ordering Provider: SHARLA POWERS Report Released Date/Time: Dec 09, 2024 10:01 AM Reporting Lab: [facility] [place] [address] [address] Performing Lab: [facility] [place] [address] [address] [facility] BASIC METABOLI C PANEL (non-fas ting) CARBON DIOXIDE, TOTAL [MOLES/VOL UME] IN SERUM OR PLASMA 22 meq/L 20 - 30 12/09 Specimen Type: SERUM No comment entered. Ordering Provider: SHARLA POWERS Report Released Date/Time: Dec 09, 2024 10:01 AM Reporting Lab: [facility] [place] [facility] [address] [address] Performing Lab: [facility] [place] [place] [address] [address] [facility] BASIC METABOLI C PANEL (non-fas ting) CALCIUM [MASS/VOLU ME] IN SERUM OR PLASMA 9.1 mg/dL 8.5 - 10.2 12/09 Specimen Type: SERUM No comment entered. Ordering Provider: SHARLA POWERS Report Released Date/Time: Dec 09, 2024 10:01 AM Reporting Lab: [facility] [place] [facility] [address] [address] Performing Lab: [facility] [place] [facility] [address] [address] [facility] [place] [facility] BASIC METABOLI C PANEL (non-fas ting) CREATININE [MASS/VOLU ME] IN SERUM OR PLASMA 0.88 mg/dL 0.50 - 1.40 12/09 Specimen Type: SERUM No comment entered. Ordering Provider: SHARLA POWERS Report Released Date/Time: Dec 09, 2024 10:01 AM Reporting Lab: [facility] [place] [address] [address] Performing Lab: [facility] [place] [address] [address] [facility] [place] [facility] BASIC METABOLI C PANEL (non-fas ting) GLOMERULAR FILTRATION RATE/1.73 SQ M.PREDICTE D [VOLUME RATE/AREA] IN SERUM, PLASMA OR BLOOD BY CREATININE -BASED FORMULA (CKD-EPI 2020) >90mL/mi n 60 12/09 Specimen Type: SERUM No comment entered. Ordering Provider: SHARLA POWERS Report Released Date/Time: Dec 09, 2024 10:01 AM Reporting Lab: [facility] [place] [address] [address] Performing Lab: [facility] [place] [address] [address] [facility] [place] [facility] LIPID PANEL, NON FASTING CHOLESTERO L [MASS/VOLU ME] IN SERUM OR PLASMA 120 mg/dL 12/09 Specimen Type: SERUM No comment entered. Ordering Provider: SHARLA POWERS Report Released Date/Time: Dec 09, 2024 10:01 AM Reporting Lab: [facility] [place] [address] [address] Performing Lab: [facility] [place] [address] [address] [facility] [place] [facility] LIPID PANEL, NON FASTING TRIGLYCERI DE [MASS/VOLU ME] IN SERUM OR PLASMA 44 mg/dL 0 - 150 12/09 Specimen Type: SERUM No comment entered. Ordering Provider: SHARLA POWERS Report Released Date/Time: Dec 09, 2024 10:01 AM Reporting Lab: [facility] [place] [facility] [address] [address] Performing Lab: [place] [facility] [place] [facility] [address] [address] [facility] LIPID PANEL, NON FASTING CHOLESTERO L IN LDL [MASS/VOLU ME] IN SERUM OR PLASMA BY CALCULAMATT N 37 mg/dL 0 - 129 12/09 Specimen Type: SERUM No comment entered. Ordering Provider: SHARLA POWERS Report Released Date/Time: Dec 09, 2024 10:01 AM Reporting Lab: [facility] [place] [facility] [address] [address] Performing Lab: [facility] [address] [address] [facility] TRN [facility] LIPID PANEL, NON FASTING CHOLESTERO L.TOTAL/CH OLESTEROL IN HDL [MASS RATIO] IN SERUM OR PLASMA 1.6 12/09 Specimen Type: SERUM No comment entered. Ordering Provider: SHARLA POWERS Report Released Date/Time: Dec 09, 2024 10:01 AM Reporting Lab: [place] [facility] [place] [facility] [address] [address] Performing Lab: [place] [facility] [place] [facility] [address] [address] [facility] TRN [place] [facility] LIPID PANEL, NON FASTING CHOLESTERO L IN HDL [MASS/VOLU ME] IN SERUM OR PLASMA 74 mg/dL 40 - 60 12/09 H Specimen Type: SERUM No comment entered. Ordering Provider: SHARLA POWERS Report Released Date/Time: Dec 09, 2024 10:01 AM Reporting Lab: [facility] [facility] [address] [address] Performing Lab: [facility] [facility] [address] [address] [facility] [place] [facility] LIVER FUNCTION PROTEIN [MASS/VOLU ME] IN SERUM OR PLASMA 7.6 g/dL 6.0 - 8.3 12/09 Specimen Type: SERUM No comment entered. Ordering Provider: SHARLA POWERS Report Released Date/Time: Dec 09, 2024 10:01 AM Reporting Lab: [facility] [facility] [address] [address] Performing Lab: [facility] [facility] [address] [address] [place] [facility] [place] [facility] LIVER FUNCTION ALBUMIN [MASS/VOLU ME] IN SERUM OR PLASMA BY BROMOCRESO L PURPLE (BCP) DYE BINDING METHOD 4.2 g/dL 3.5 - 5.0 12/09 Specimen Type: SERUM No comment entered. Ordering Provider: SHARLA POWERS Report Released Date/Time: Dec 09, 2024 10:01 AM Reporting Lab: [facility] [facility] [address] [address] Performing Lab: [facility] [facility] [address] [address] [place] [facility] [facility] LIVER FUNCTION ALKALINE PHOSPHATAS E [ENZYMATIC ACTIVITY/V OLUME] IN SERUM OR PLASMA 63 U/L 40 - 150 12/09 Specimen Type: SERUM No comment entered. Ordering Provider: SHARLA POWERS Report Released Date/Time: Dec 09, 2024 10:01 AM Reporting Lab: [facility] [facility] [address] [address] Performing Lab: [facility] [facility] [address] [address] [place] [facility] [place] [facility] LIVER FUNCTION ASPARTATE AMINOTRANS FERASE [ENZYMATIC ACTIVITY/V OLUME] IN SERUM OR PLASMA BY WITH P-5'-P 32 U/L 5 - 34 12/09 Specimen Type: SERUM No comment entered. Ordering Provider: SHARLA POWERS Report Released Date/Time: Dec 09, 2024 10:01 AM Reporting Lab: [place] [facility] [place] [address] [address] Performing Lab: [place] [facility] [address] [facility] LIVER FUNCTION ALANINE AMINOTRANS FERASE [ENZYMATIC ACTIVITY/V OLUME] IN SERUM OR PLASMA BY WITH P-5'-P 37 U/L 12/09 Specimen Type: SERUM No comment entered. Ordering Provider: SHARLA POWERS Report Released Date/Time: Dec 09, 2024 10:01 AM Reporting Lab: [facility]N [facility] [address] Performing Lab: [facility]RL [facility]N [facility] [address] [facility]ERYRCULL[facility]ENTERN [facility] LIVER FUNCTION BILIRUBIN. TOTAL [MASS/VOLU ME] IN SERUM OR PLASMA 0.5 mg/dL 0.2 - 1.2 12/09 Specimen Type: SERUM No comment entered. Ordering Provider: SHARLA POWERS Report Released Date/Time: Dec 09, 2024 10:01 AM Reporting Lab: [facility] [address] [address] Performing Lab: [place] [facility] [address] [address] [facility]ERYRCULLMAN [facility]ENTERN [facility] PSA PROSTATE SPECIFIC AG [MASS/VOLU ME] IN SERUM OR PLASMA BY IMMUNOASSA Y 4.52 ng/mL 0.00 - 4.00 12/09 H Specimen Type: SERUM No comment entered. Ordering Provider: SHARLA POWERS Report Released Date/Time: Dec 09, 2024 10:01 AM Reporting Lab: [facility] [address] [address] Performing Lab: [facility] [address] [address] [facility] VITAMIN B12 COBALAMIN (VITAMIN B12) [MASS/VOLU ME] IN SERUM OR PLASMA 1096 pg/mL 200 - 900 12/09 H Specimen Type: SERUM No comment entered. Ordering Provider: SHARLA POWERS Report Released Date/Time: Dec 09, 2024 10:01 AM Reporting Lab: [facility] [address] [address] Performing Lab: [facility] [address] [address] [facility] OCCULT BLOOD FIT X1 SCREEN(I N-HOUSE) HEMOGLOBIN .GASTROINT ESTINAL.LO WER [PRESENCE] IN STOOL BY IMMUNOASSA Y Negative 07/18 Specimen Type: FECES No comment entered. Ordering Provider: SHARLA POWERS Report Released Date/Time: Jun 22, 2024 11:02 AM Reporting Lab: [facility] [address] [address] Performing Lab: [facility] [facility] [address] [facility] CBC LEUKOCYTES [#/VOLUME] IN BLOOD BY AUTOMATED COUNT 5.93 10*3/uL 4.50 - 11.00 06/21 Specimen Type: BLOOD No comment entered. Ordering Provider: SHARLA POWERS Report Released Date/Time: Jun 10, 2024 08:13 AM Reporting Lab: [facility] [address] [address] Performing Lab: [facility] [address] [facility] CBC ERYTHROCYT ES [#/VOLUME] IN BLOOD BY AUTOMATED COUNT 4.71 10*6/uL 4.23 - 5.66 06/21 Specimen Type: BLOOD No comment entered. Ordering Provider: SHARLA POWERS Report Released Date/Time: Jun 10, 2024 08:13 AM Reporting Lab: [facility] [address] [address] Performing Lab: [facility] [address] [address] [facility] CBC HEMOGLOBIN [MASS/VOLU ME] IN BLOOD 14.5 g/dL 12.8 - 17 06/21 Specimen Type: BLOOD No comment entered. Ordering Provider: SHARLA POWERS Report Released Date/Time: Jun 10, 2024 08:13 AM Reporting Lab: [facility] [address] [address] Performing Lab: [facility] [place] [facility] [address] [address] [facility] CBC HEMATOCRIT [VOLUME FRACTION] OF BLOOD BY AUTOMATED COUNT 42.2 39.2 - 50.4 06/21 Specimen Type: BLOOD No comment entered. Ordering Provider: SHARLA POWERS Report Released Date/Time: Jun 10, 2024 08:13 AM Reporting Lab: [facility] [place] [facility] [address] [address] Performing Lab: [facility] [place] [facility] [address] [address] [facility] CBC MCV [ENTITIC VOLUME] BY AUTOMATED COUNT 89.6 fL 82 - 99 06/21 Specimen Type: BLOOD No comment entered. Ordering Provider: SHARLA POWERS Report Released Date/Time: Jun 10, 2024 08:13 AM Reporting Lab: [facility] [address] [address] Performing Lab: [facility] [address] [address] [facility] CBC MCHC [MASS/VOLU ME] BY AUTOMATED COUNT 34.4 g/dL 30.8 - 35.1 06/21 Specimen Type: BLOOD No comment entered. Ordering Provider: SHARLA POWERS Report Released Date/Time: Jun 10, 2024 08:13 AM Reporting Lab: [facility] [address] [address] Performing Lab: [facility] [address] [address] [facility] CBC PLATELETS [#/VOLUME] IN BLOOD BY AUTOMATED COUNT 244 10*3/uL 140 - 360 06/21 Specimen Type: BLOOD No comment entered. Ordering Provider: SHARLA POWERS Report Released Date/Time: Jun 10, 2024 08:13 AM Reporting Lab: [facility] [place] [facility] [address] [address] Performing Lab: [facility] [place] [facility] [address] [address] [facility] CBC ERYTHROCYT E DISTRIBUTI ON WIDTH [RATIO] BY AUTOMATED COUNT 12.3 12.0 - 16.0 06/21 Specimen Type: BLOOD No comment entered. Ordering Provider: SHARLA POWERS Report Released Date/Time: Jun 10, 2024 08:13 AM Reporting Lab: [facility] [place] [facility] [address] [address] Performing Lab: [facility] [place] [facility] [address] [address] [facility] CBC MCH [ENTITIC MASS] BY AUTOMATED COUNT 30.8 pg 26.2 - 32.6 06/21 Specimen Type: BLOOD No comment entered. Ordering Provider: SHARLA POWERS Report Released Date/Time: Jun 10, 2024 08:13 AM Reporting Lab: [facility] [place] [facility] [address] [address] Performing Lab: [facility] [place] [address] [address] [facility] [place] BASIC METABOLI C PANEL (non-fas ting) UREA NITROGEN [MASS/VOLU ME] IN SERUM OR PLASMA 16 mg/dL 7 - 25 06/21 Specimen Type: SERUM No comment entered. Ordering Provider: SHARLA POWERS Report Released Date/Time: Jun 10, 2024 08:13 AM Reporting Lab: [facility] [address] [address] Performing Lab: [address] [address] [facility] BASIC METABOLI C PANEL (non-fas ting) GLUCOSE [MASS/VOLU ME] IN SERUM OR PLASMA 100 mg/dL 65 - 100 06/21 Specimen Type: SERUM No comment entered. Ordering Provider: SHARLA POWERS Report Released Date/Time: Jun 10, 2024 08:13 AM Reporting Lab: [address] [address] Performing Lab: [address] [address] [facility] BASIC METABOLI C PANEL (non-fas ting) SODIUM [MOLES/VOL UME] IN SERUM OR PLASMA 136 mmol/L 135 - 145 06/21 Specimen Type: SERUM No comment entered. Ordering Provider: SHARLA POWERS Report Released Date/Time: Jun 10, 2024 08:13 AM Reporting Lab: [address] [address] Performing Lab: [facility]ERYRCULL[facility]ENTERN [address] [address] [facility] BASIC METABOLI C PANEL (non-fas ting) POTASSIUM [MOLES/VOL UME] IN SERUM OR PLASMA 4.0 mmol/L 3.5 - 5.0 06/21 Specimen Type: SERUM No comment entered. Ordering Provider: SHARLA POWERS Report Released Date/Time: Jun 10, 2024 08:13 AM Reporting Lab: [address] [address] Performing Lab: [facility] SURGERYRL TRN [facility]ITALUS[facility] [address] [address] [facility] SURGERYRINFIRMARY WESTTRN [facility]USE [facility] BASIC METABOLI C PANEL (non-fas ting) CHLORIDE [MOLES/VOL UME] IN SERUM OR PLASMA 104 mmol/L 100 - 110 06/21 Specimen Type: SERUM No comment entered. Ordering Provider: SHARLA POWERS Report Released Date/Time: Jun 10, 2024 08:13 AM Reporting Lab: [facility] SURGERYRL TRN [facility]USE[facility] [address] [address] Performing Lab: [facility] SURGERYRCULLMAN REGIONAL MEDICAL CENTERN [facility]ITALUSE[address] [address] [facility] BASIC METABOLI C PANEL (non-fas ting) CARBON DIOXIDE, TOTAL [MOLES/VOL UME] IN SERUM OR PLASMA 23 meq/L 20 - 30 06/21 Specimen Type: SERUM No comment entered. Ordering Provider: SHARLA PWOERS Report Released Date/Time: Jun 10, 2024 08:13 AM Reporting Lab: [facility] SURGERYRCULLMAN REGION[facility]ICAL CENTERN [address] [address] Performing Lab: [facility] [address] [address] [facility] BASIC METABOLI C PANEL (non-fas ting) CREATININE [MASS/VOLU ME] IN SERUM OR PLASMA 0.89 mg/dL 0.50 - 1.40 06/21 Specimen Type: SERUM No comment entered. Ordering Provider: SHARLA POWERS Report Released Date/Time: Jun 10, 2024 08:13 AM Reporting Lab: [facility] SURGERYRINFIRMARY WESTTRN [facility]ITALUSE[address] [address] Performing Lab: [facility]ERYRCULLMAN REGION[facility] MEDICAL CENTERN [facility]ITALUSE[address] [address] [facility] BASIC METABOLI C PANEL (non-fas ting) GLOMERULAR FILTRATION RATE/1.73 SQ M.PREDICTE D [VOLUME RATE/AREA] IN SERUM, PLASMA OR BLOOD BY CREATININE -BASED FORMULA (CKD-EPI 2020) >90mL/mi n 60 06/21 Specimen Type: SERUM No comment entered. Ordering Provider: SHARLA POWERS Report Released Date/Time: Jun 10, 2024 08:13 AM Reporting Lab: [facility] SURGERYRL WSTRN [facility]ITALUSETS [address] [address] Performing Lab: [facility] SURGERYRL WSTRN [facility]ITALUSE[address] [phone] [place], [place] [address]RL WSTRN [facility]ITALUSE [facility] LIPID PANEL, NON FASTING CHOLESTERO L [MASS/VOLU ME] IN SERUM OR PLASMA 122 mg/dL 06/21 Specimen Type: SERUM No comment entered. Ordering Provider: SHARLA POWERS Report Released Date/Time: Jun 10, 2024 08:13 AM Reporting Lab: [facility] SURGERYRL TRN [facility]ITALUSE[address] [address] Performing Lab: [facility] SURGERYRL TRN [facility]ITALUSE[address] [phone] [place], [place] [address]RL [facility]ERN [facility]ITALUSE [facility] LIPID PANEL, NON FASTING TRIGLYCERI DE [MASS/VOLU ME] IN SERUM OR PLASMA 65 mg/dL 0 - 150 06/21 Specimen Type: SERUM No comment entered. Ordering Provider: SHARLA POWERS Report Released Date/Time: Jun 10, 2024 08:13 AM Reporting Lab: [facility] SURGERYRL TRN [place] [address] [address] Performing Lab: [facility] SURGERYRL WSTRN [facility]ITAL[facility]ETS [address] [address] [facility]ITALUSE [facility] LIPID PANEL, NON FASTING CHOLESTERO L IN LDL [MASS/VOLU ME] IN SERUM OR PLASMA BY CALCULATIO N 38 mg/dL 0 - 129 06/21 Specimen Type: SERUM No comment entered. Ordering Provider: SHARLA POWERS Report Released Date/Time: Jun 10, 2024 08:13 AM Reporting Lab: [facility] SURGERYRL WSTRN [facility] CENTERCHUSETS [address] [address] Performing Lab: [facility] [place] [facility] [address] [address] [facility] [place] [facility] LIPID PANEL, NON FASTING CHOLESTERO L.TOTAL/CH OLESTEROL IN HDL [MASS RATIO] IN SERUM OR PLASMA 1.7 06/21 Specimen Type: SERUM No comment entered. Ordering Provider: SHARLA POWERS Report Released Date/Time: Jun 10, 2024 08:13 AM Reporting Lab: [facility] [place] [facility] [address] [address] Performing Lab: [facility] [place] [facility] [address] [address] [facility] [place] [facility] LIPID PANEL, NON FASTING CHOLESTERO L IN HDL [MASS/VOLU ME] IN SERUM OR PLASMA 71 mg/dL 40 - 60 06/21 H Specimen Type: SERUM No comment entered. Ordering Provider: SHARLA POWERS Report Released Date/Time: Jun 10, 2024 08:13 AM Reporting Lab: [facility] [place] [facility] [address] [address] Performing Lab: [facility] [place] [facility] [address] [address] [facility] Vital Signs Combined list of inpatient and outpatient Vital Signs from Department of Defense and Veterans Affairs, ranging from 12 months to all on record, depending upon the facility. Vital Sign Value Date Comments Source SYSTOLIC BLOOD PRESSURE 128 12/22/19 25 10:18:28 [facility] [place] [facility] DIASTOLIC BLOOD PRESSURE 82 025 10:18:28 [facility] [place] [facility] PULSE OXIMETRY 99 12/21/2024 10:18:28 [facility] [place] [facility] WEIGHT 210 12/21/2024 10:18:28 [facility] [place] [facility] BMI 29 kg/m2 12/21/2024 10:18:28 [facility] [place] [facility] PAIN 0 12/21/2024 10:18:28 [facility] [place] [facility] HEIGHT 71 12/21/2024 10:18:28 [facility] TEMPERATURE 98.3 12/21/2024 10:18:28 [facility] PULSE 70 12/21/2024 10:18:28 [facility] RESPIRATION 20 12/21/2024 10:18:28 [facility] SYSTOLIC BLOOD PRESSURE 128 12/10/19 09:53:41 [facility] DIASTOLIC BLOOD PRESSURE 76 025 09:53:41 [facility] PAIN 2 12/09/2024 09:53:41 [facility] TEMPERATURE 98.6 12/09/2024 09:53:41 [facility] PULSE 76 12/09/2024 09:53:41 [facility] RESPIRATION 16 12/09/2024 09:53:41 [facility] SYSTOLIC BLOOD PRESSURE 142 10/26/19 11:25:37 [facility] DIASTOLIC BLOOD PRESSURE 84 025 11:25:37 [facility] PULSE OXIMETRY 99 10/26/2024 11:25:37 [facility] WEIGHT 205 10/26/2024 11:25:37 [facility] BMI 29 kg/m2 10/26/2024 11:25:37 [facility] PAIN 5 10/26/2024 11:25:37 [facility] HEIGHT 71 10/26/2024 11:25:37 [facility] TEMPERATURE 98.3 10/26/2024 11:25:37 [facility] PULSE 72 10/26/2024 11:25:37 [facility] RESPIRATION 20 10/26/2024 11:25:37 [facility] SYSTOLIC BLOOD PRESSURE 147 06/22/20 24 11:05:46 [facility] DIASTOLIC BLOOD PRESSURE 72 024 11:05:46 [facility] PULSE OXIMETRY 99 06/22/2024 11:05:46 [facility] WEIGHT 207 06/22/2024 11:05:46 [facility] BMI 29 kg/m2 06/22/2024 11:05:46 [facility] PAIN 0 06/22/2024 11:05:46 [facility] TEMPERATURE 98.4 06/22/2024 11:05:46 [facility] PULSE 73 06/22/2024 11:05:46 [facility] RESPIRATION 16 06/22/2024 11:05:46 [facility] SYSTOLIC BLOOD PRESSURE 154 01/21/20 24 09:45:14 [facility] DIASTOLIC BLOOD PRESSURE 81 024 09:45:14 [facility] PULSE OXIMETRY 97 01/21/2024 09:45:14 [facility] WEIGHT 211 01/21/2024 09:45:14 [facility] BMI 29 kg/m2 01/21/2024 09:45:14 [facility] PAIN 0 01/21/2024 09:45:14 [facility] HEIGHT 71 01/21/2024 09:45:14 [facility] TEMPERATURE 98.3 01/21/2024 09:45:14 [facility] PULSE 81 01/21/2024 09:45:14 [facility] RESPIRATION 20 01/21/2024 09:45:14 [facility] Encounters Combined list of: 1) Encounters from Department of Veterans Affairs facilities going backup to the last 18 months, not all VA inpatient encounters are included; 2) Encounters from the Department of [facility] facilities going backup to 280 months. Location Location Details Encounter Type Encounter Number Reason For Visit Attending Provider ADM Date DC Date Status Disposition Source [facility] En[facility] [id number] 07/09 [facility] OFFICE O/P EST LOW 20-29 MIN [id number] Diagnos is: ICD-10- CM K21.9 Gastro- esophag eal reflux disease without esophag itis Janette POWERS 07/17 [facility] En[facility] [id number] 09/02 [facility] [id number] 09/17 [facility] En[facility] [id number] 01/14 [facility] OFFICE O/P EST LOW 20 MIN [id number] Diagnos is: ICD-10- CM R97.20 Elevate d prostat e specifi c antigen [PSA] Janette POWERS 01/20 [facility] En[facility] [id number] 02/16 [facility] En[facility] [id number] 02/17 [facility] En[facility] [id number] 02/23 [facility] En[facility] [id number] 02/23 [facility]counter [id number] 02/24 [facility] [id number] 02/25 [facility] En[facility] [id number] 03/23 [facility] [id number] 03/23 [facility] En[facility] [id number] AURELIO BACH ISBRADLY Can 04/19 [facility] En[facility] [id number] 1.06/22 [facility] Encounter [id number] 1.06/22 [facility] OFFICE O/P EST LOW 20 MIN [id number] 1. Diagnos is: ICD-10- CM I65.29 Occlusi on and stenosi s of unspeci fied carotid artery Janette POWERS 06/22 [facility] En[facility] [id number] 09/05 [facility] Encounter [id number] 09/23 [facility] Encounter [id number] 10/24 [facility] En[facility] [id number] 10/24 [facility] OFFICE O/P EST MOD 30 MIN [id number] Diagnos is: ICD-10- CM M50.10 Cervica l disc disorde r w radicul opathy, unsp cervica l region POWERS,W ILLIAM J 10/26 [facility] En[facility] [id number] 11/09 [facility] Encounter [id number] 11/11 [facility] SELF CARE MNGMENT TRAINING [id number] Diagnos is: ICD-10- CM M79.602 Pain in left arm MACHON,CALE LIE E 11/14 [facility] En[facility] [id number] 11/16 [facility] [place] [place] [id number] Diagnos is: ICD-10- CM H90.3 Sensori neural hearing loss, BETTYE Black 11/18 [facility] En[facility] [id number] 11/21 [facility] En[facility] [id number] 11/29 [facility] OFF/OP EST MAY X REQ PHY/QHP [id number] Diagnos is: ICD-10- CM 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 ing JUAN ANTONIO CHILEL 12/09 [facility] OFFICE O/P EST MOD 30 MIN [id number] Diagnos is: ICD-10- CM S30.860 A Insect bite (nonven omous) of lower back and pelvis, marlee SANTAMARIAAVATalia FREEDMANBAY 12/09 [facility] OFFICE O/P EST HI 40 MIN [id number] Diagnos is: ICD-10- CM N40.0 Benign prostat ic hyperpl mushtaq without lower urinry tract symp Janette POWERS 12/21 [facility] Outpatient Encounter [id number] JUAN ANTONIO CHILEL 12/22 [facility] Social History Combined list of available smoking, tobacco, and other social history from Department of Defense and Veterans Affairs facilities. Social History Type Response Date Comment [facility] e Tobacco smoking status NHIS VA-TOBACCO NEVER USED 06/22/2024 [facility] [place] [facility] History of tobacco use VA-TOBACCO NEVER USED 07/17/2023 [facility] [place] [facility] History of tobacco use VA-TOBACCO NEVER USED 07/18/2022 [facility] [place] [facility] History of tobacco use VA-TOBACCO NEVER USED 03/27/2021 [facility] [place] [facility] History of tobacco use VA-TOBACCO NEVER USED 11/29/2019 [facility] [place] [facility] History of tobacco use VA-TOBACCO NEVER USED 09/24/2018 [facility] [place] [facility] Plan of Care List of future care activities from Department of Veterans Affairs facilities. Additional future care activities may be listed in the Assessment and Plan section. Date/Time Care Activity Care Activity Detail Facili ty 12/27/2024 [facility] - [facility]IC[facility]
--- OUTSIDE RECORDS SUMMARY | 2024-12-27 08:00 | XMS_ITS ---
Author Name [facility] [place] Organization [facility] [place] Address [address] [place] [address] Care Team Providers Care Printer'S Assistant Name Role Phone RENEE POWERS Primary Care Provider Unavaila ble Selected Encounter This section includes the information on record at [place] for the Encounter. Date/Time Encounter Type Encounter Description Reason Provider Source Dec 09, 2024 10:30 AM OFFICE O/P EST MOD 30 MIN PRIMARY CARE/MEDICINE ICD-10-CM S30.860A Insect bite (nonvenomous) of lower back and pelvis, JUANIS Thomas [place] Encounter Template Text not used by [place] Assessments - Encounter Diagnoses This section includes the primary and secondary diagnoses documented for the Encounter. Date/Time Primary/Secondary Diagnosis Diagnosis Name Provider Source Dec 09, 2024 01:13 PM PRIMARY Insect bite (nonvenomous) of lower back and pelvis, JUANIS Thomas [facility] Plan of Treatment: Future Appointments (+ 6 months) and Future Tests (+/- 45 days) The Plan of Treatment section includes future care activities for the patient from all [place] treatmentfacilities. This section includes future appointments and future orders which are active, pending or scheduled. Future Appointments This section includes appointments that were scheduled to occur 6 months from the date of the Encounter, up to a maximum of 20 appointments. The data comes from all [place] treatment facilities. Appointment Date/Time Appointment Type Appointme nt Facility Name Dec 21, 2024 10:30 AM AM[place]ULATORY [place]ICINE [place] [facility] [place] [facility] Dec 27, 2024 08:15 AM [facility] [place]IC[place] [facility] [place] [facility] January 31, 2025 09:00 AM [facility] [place] [facility] Active, Pending, and Scheduled Orders This section includes a listing of several types of active, pending, and scheduled orders, including clinic medications orders, diagnostic test orders, procedure orders and consult orders; where the start date of the order is 45 days before the date of the Encounter or 45 days after the date of theEncounter. The data comes from all [place] treatment facilities. Test Date/Time Test Type Test Details Facility Name Oct 26, 2024 11:47 AM Consult Order [facility] Cons Review Scheduling Coordinator's Choice [place] [facility] [place] [facility] Nov 18, 2024 10:50 AM Consult Order OTOLARYNGO LOGY/ENT ONE Cons Review Scheduling Coordinator's Choice [place] [facility] [place] [facility] Nov 29, 2024 07:45 AM Consult Order [facility]UR[facility] Cons Review Scheduling Coordinator's Choice [place] [facility] [place] [facility] Dec 21, 2024 11:01 AM Consult Order [facility]-OPTOMETRY ROUTINE EYE EXAM Cons Review Scheduling Coordinator's Choice [facility] [place] [facility] Dec 21, 2024 11:01 AM Consult Order [facility]-UROLOGY Cons Review Scheduling Coordinator's Choice [place] [facility] [place] [facility] Dec 21, 2024 11:01 AM Consult Order [facility]FHA UNDERWRITER Cons Review Scheduling Coordinator's Choice [place] [facility] Lab Results: +/- 30 days of the encounter This section includes the Chemistry and Hematology Lab Results on record with [place] for the patient. Radiology Reports and Pathology Reports are provided separately, in subsequent sections. Lab Results This section contains the Chemistry/Hematology Results that were resulted 30 days before or 30 daysafter the date of the Encounter. Date/Time Source Result Type Result - Unit Interpretation Reference Range Specimen Type Comment Dec 09, 2024 11:16 AM [place] [facility] CBC BLOOD Specimen Type: BLOOD No comment entered. Ordering Provider: RENEE POWERS Report Released Date/Time: Dec 09, 2024 10:01 AM Reporting Lab: [facility] [address] [facility] [address] Performing Lab: [facility] [address] [address] WBC 7.37 10*3/uL 4.50-11.00 RBC 4.64 10*6/uL 4.23-5.66 HGB 14.2 g/dL 12.8-17 HCT 41.5 39.2-50.4 MCV 89.4 fL 82-99 MCHC 34.2 g/dL 30.8-35.1 PLT 239 10*3/uL 140-360 MPV 9.8 fL 9.2-12.4 RDW-CV 12.6 12.0-16.0 MCH 30.6 pg 26.2-32.6 Dec 09, 2024 11:16 AM [facility] BASIC METABOLIC PANEL (non-fasting) SERUM Spe cimen Type: SERUM No comment entered. Ordering Provider: RENEE POWERS Report Released Date/Time: Dec 09, 2024 10:01 AM Reporting Lab: [facility] [address] [facility] [address] Performing Lab: [address] [address] UREA NITROGEN 16 mg/dL 7-25 GLUCOSE 100 mg/dL 65-100 SODIUM 139 mmol/L 135-145 POTASSIUM 4.8 mmol/L 3.5-5.0 CHLORIDE 107 mmol/L 100-110 CO2 22 meq/L 20-30 CALCIUM 9.1 mg/dL 8.5-10.2 CREATININE, Serum 0.88 mg/dL 0.50-1.40 eGFR(CKD-EPI 2020) >90 mL/min >60 Dec 09, 2024 11:16 AM [facility] LIPID PANEL, NON FASTING SERUM Specimen Type: SERUM No comment entered. Ordering Provider: RENEE POWERS Report Released Date/Time: Dec 09, 2024 10:01 AM Reporting Lab: [facility] [address] [facility] [address] Performing Lab: [facility] [address] [facility] [address] CHOLESTEROL 120 mg/dL TRIGLYCERIDE 44 mg/dL 0-150 LDL calculated 37 mg/dL 0-129 CHOL/HDL 1.6 HDL CHOLESTEROL 74 mg/dL H 40-60 Dec 09, 2024 11:16 AM [facility] LIVER FUNCTION SERUM Specimen Type: SERUM No comment entered. Ordering Provider: RENEE POWERS Report Released Date/Time: Dec 09, 2024 10:01 AM Reporting Lab: [facility] [address] [facility] [address] Performing Lab: [facility] [address] [facility] [address] PROTEIN,TOTAL 7.6 g/dL 6.0-8.3 ALBUMIN 4.2 g/dL 3.5-5.0 ALKALINE PHOSPHATASE 63 U/L 40-150 AST 32 U/L 5-34 ALT 37 U/L BILIRUBIN, TOTAL 0.5 mg/dL 0.2-1.2 Dec 09, 2024 11:16 AM [facility] PSA SERUM Specimen Type: SERUM No comment entered. Ordering Provider: RENEE POWERS Report Released Date/Time: Dec 09, 2024 10:01 AM Reporting Lab: [facility] [address] [facility] [address] Performing Lab: [facility] [address] PSA 4.52 ng/mL H 0.00-4.00 Dec 09, 2024 11:16 AM [facility] VITAMIN B12 SERUM Specimen Type: SERUM No comment entered. Ordering Provider: RENEE POWERS Report Released Date/Time: Dec 09, 2024 10:01 AM Reporting Lab: [facility] [address] [facility] [address] Performing Lab: [address] [address] VITAMIN B12 1096 pg/mL H 200-900 Vital Signs: All taken on the encounter date This section contains inpatient and outpatient Vital Signs collected on the date of the Encounter. Date/Time Temperature Pulse Blood Pressure Respiratory Rate SP02 Pain Height Weight Body Mass Index Source Dec 09, 2024 09:53 AM 98.6 76 128/76 16 2 [facility] [place] [facility] Social History: Smoking Status (Most current) and Tobacco Use (All prior to encounter date) This section includes the most current, and the historical, smoking and tobacco- related health factors from the [place] facility where the Encounter took place. Current Smoking Status This section includes the most current smoking, or tobacco-related health factor, from the [place] facility where the Encounter took place. Date/Time Current Smoking Status Comment Facil ity Jun 22, 2024 11:00 AM VA-TOBACCO NEVER USED [facility] [place] [facility] Tobacco Use History This section includes a history of the smoking, or tobacco-related health factors, that were collected on or before the date of the Encounter. The data comes from the [place] facility where the Encounter took place. Date/Time Smoking Status/Tobacco Use Comment F acility Jul 17, 2023 11:00 AM VA-TOBACCO NEVER USED [facility] [place] [facility] Jul 18, 2022 08:30 AM VA-TOBACCO NEVER USED [facility] [place] [facility] Mar 27, 2021 11:30 AM VA-TOBACCO NEVER USED [facility] [place] [facility] Nov 29, 2019 08:24 AM VA-TOBACCO NEVER USED [facility] [place] [facility] Sep 24, 2018 07:45 AM VA-TOBACCO NEVER USED [facility] [place] [facility] Encounter Notes: All associated encounter notes This section contains the clinical notes associated to the Encounter. Date/Time Encounter Note(s) Provider Source Dec 09, 2024 10:37 AM PHYSICIAN DIGITAL PRODUCTION ARTIST NOTE: LOCAL TITLE: PA NOTE STANDARD TITLE: PHYSICIAN DIGITAL PRODUCTION ARTIST NOTE DATE OF NOTE: DEC 09, 2024@10:37 ENTRY DATE: DEC 09, 2024@10:37:27 AUTHOR: JUANIS SANTAMARIA EXP COSIGNER: URGENCY: STATUS: COMPLETED SICK CALL VISIT HPI: 64 year old male with below noted PMHx presents today for concerns regarding a tick removed from his left low back this morning. His removed it with a tick tornado tool and it was still moving and had its head intact . Evaluation of tick presented is a deer tick appearing intact. He has had no fever, arthralgias, myalgias or rashes. He is requesting the post tick prophylaxis medication. He is unsure how long the tick was embedded but states he has been doing yard work over the past two days. tick bite found this morning on left side of back, flank. Vet reports working out in his yard yesterday and the day prior. Site not readily visible so he is unsure when the tick was on him. Tick was embedded in skin, reports removal. Vet provides tick to RN at time of visit. Tick is a deer tick that appears to have its head intact REVIEW OF SYSTEMS: A 12 point review of systems is negative except as noted in the HPI. Active Medical Problems: Active Problem Cervical radiculopathy M50.10 10/26/2024 RENEE POWERS Carotid artery stenosis I65.29 06/22/2024 RENEE POWERS Erectile Dysfunction ([facility] [id number] 07/18/2022 RENEE POWERS GERD - Gastro-Esophageal Reflux Dis 03/28/2021 RENEE POWERS Vitamin B12 Deficiency ([facility] [id number] 03/28/2021 RENEE POWERS Elevated PSA R97.20 03/28/2021 RENEE POWERS Abnormal glucose level R73.09 04/14/2019 RENEE POWERS HTN - Hypertension ([facility] [id number]) I 10/11/2018 RENEE POWERS Low Back Pain ([facility] [id number]) M54.5 10/11/2018 RENEE POWERS Obesity ([facility] [id number]) E66.9 10/11/2018 RENEE POWERS Family history of cancer of colon R 10/11/2018 RENEE POWERS Family history of prostate cancer R 10/11/2018 RENEE POWERS Colonoscopy normal Z12.11 03/02/2019 RENEE POWERS Meds: Active Outpatient Medications (including Supplies): AMLODIPINE BESYLATE 10MG TAB TAKE ONE TABLET BY MOUTH ONCE ACTIVE DAILY FOR BLOOD PRESSURE/HEART, DO NOT TAKE WITH GRAPEFRUIT JUICE Indication: FOR HIGH BLOOD PRESSURE CLOPIDOGREL BISULFATE 75MG TAB TAKE ONE TABLET BY MOUTH ACTIVE ONCE DAILY CYANOCOBALAMIN 1000MCG TAB TAKE ONE TABLET BY MOUTH ONCE ACTIVE DAILY FOR VITAMIN SUPPLEMENTATION OMEPRAZOLE 20MG EC CAP TAKE ONE CAPSULE BY MOUTH EVERY ACTIVE MORNING 30 MINUTES BEFORE BREAKFAST ROSUVASTATIN CA 40MG TAB TAKE ONE TABLET BY MOUTH ONCE ACTIVE DAILY FOR CHOLESTEROL Allergies: DEMEROL, LISINOPRIL Date Vital Measurement Qualifiers 12/09/2024 09:53 Temp F (C) 98.6 (37.0) Pulse 76 Respir 16 BP 128/76 Pain 2 FOCUSED EXAMINATION WD, non-toxic NAD Left lower back with point of eschar with mild erythema about the eschar. No rash or ring. Nontender to palpation. No edema , excess warmth or induration. MDM: No evidence of cellulitis or tick borne illness. Doxycycline 200 mg PO x 1. Hold on to rest of bottle to initiate if redness/swelling or fever develop and return for tick borne panel to be drawn. Tick was still alive post removal and is not engorged. Appears to have been embedded < 72 hours given this information. given s/s of tick borne illnesses and to return as directed if they present. ASSESSMENT/PLAN Insect Bite (nonvenomous) of lower back and pelvis as above On this date of the encounter, I spent 30 minutes on some or all of the following: chart review, history, physical examination, treatment planning, education and counseling of the patient/family/healthcare financial analyst, placing orders, communicating with other health care providers and documentation in the electronic health record. able to verbalize understanding of plan of care and agrees. >> MEDICATIONS Reviewed and reconciled with /rain/ JUANIS BROOKS MS,PA-C PHYSICIAN DIGITAL PRODUCTION ARTIST Signed: 12/09/2024 13:29 JUANIS SANTAMARIA [place] [facility]
--- OUTSIDE RECORDS SUMMARY | 2024-12-27 08:00 | XMS_ITS | Clinical Summary ---
Author Organization [facility] [employer] [facility] lin Address [address] [place] [address] Care Team Providers Care Polymer Tester Name Role Phone Pcp, No Primary Care Provider [phone] Social History Tobacco Use Types Packs/Day Years Used Date Smoking Tobacco: Never Assessed Sex and Gender Information Value Date Recorded Sex Assigned at Not on file Legal Sex Male 6:48 AM EST Gender Identity Not on file Sexual Orientation Not on file Plan of Treatment Health Maintenance Due Date Last Done Comments Colorectal Cancer: COLONOSCO PY Screening every 10 yrs (or Modifier) 1960 Depression: Screening Annual ly using PHQ-2/9 in Adults 18 yrs or above (or HM Modifier)([facility]) 02/01/1978 Hepatitis C Virus Infection in Adolescents and Adults: Screening (or Modifier) ([facility]) 02/01/1978 [facility] Screening Reminder: Yvette martinez for all adults ([facility]) 02/01/1978 Tobacco Smoking Cessation: i n Adults excluding Women: Behavioral and Pharmacotherapy Interventions ([facility]) 02/01/1978 DTaP/Tdap/Td Vaccines ([facility]) (1 - Tdap) 02/01/1979 Lipid Screening: Every 5 yrs for Men aged 35+ (or HM Modifier) ([facility]) 1996 Colorectal Cancer Screening 45 -75 Yrs (or HM Modifier) 02/01/2005 Colorectal Cancer: FLEXIBLE SIGMOIDOSCOPY Screening every 5 yrs 02/01/2005 Colorectal Cancer: Fecal Immunochemical Test (FIT) Annually [facility] 02/01/2005 Colorectal Cancer: High-sens itivity gFOBT Screening Annually [facility] 02/01/2005 Colorectal Cancer: Stool Col oguard Screening every 3 yrs 02/01/2005 Colorectal Cancer:CT Colonog kaylee Screening every 5 yrs 02/01/2005 Zoster/Shingles Vaccine Seri es Screening: Adults aged 18+ yrs (or HM Modifiers)([facility]) (1 of 2) 02/01/2010 Flu Vaccination: Yearly for ages 18mos through 64 years (or Modifier)([facility]) 04/14/2024 COVID-19 Vaccine Screening: Initial Series and Booster Status ([facility]) ( - 2023-25 season) 2024 RSV Vaccines (1 - 1-dose 75+ series) 02/01/2035 Pneumococcal Vaccination Scr eening: Pts 0-19 & 19-49 yrs of age ([facility]) Aged Out No longer eligible based on patient's age to complete this topic Medical Devices Not on file Insurance '[employer] / [employer] Care Teams Polymer Tester Relationship Specialty Start Date End Date Pcp, Jacqueline PCP - General Family Medicine 08/26/20
--- OUTSIDE RECORDS SUMMARY | 2024-12-27 08:00 | XMS_ITS ---
Author Name [facility] [place] [facility] [place] [facility] [place] Address [address] [place] [address] Care Team Providers Care Cafe Lead Name Role Phone RENEE POWERS Primary Care Provider Unavaila ble Selected Encounter This section includes the information on record at [place] for the Encounter. Date/Time Encounter Type Encounter Description Reason Provider Source Dec 22, 2024 09:22 AM Outpatient Encounter PRIMARY CARE/MEDICINE JOSE CHILEL Encounter Template Text not used by [place] Plan of Treatment: Future Appointments (+ 6 months) and Future Tests (+/- 45 days) The Plan of Treatment section includes future care activities for the patient from all [place] treatmentfacilities. This section includes future appointments and future orders which are active, pending or scheduled. Future Appointments This section includes appointments that were scheduled to occur 6 months from the date of the Encounter, up to a maximum of 20 appointments. The data comes from all [place] treatment facilities. Appointment Date/Time Appointment Type Appointme nt Facility Name Dec 27, 2024 08:15 AM [place] [facility] [place] [facility] January 31, 2025 09:00 AM [place] [facility] [place] [facility] Jun 22, 2025 10:30 AM AMBULATORY - MEDICINE [facility] [place] [facility] Active, Pending, and Scheduled Orders This section includes a listing of several types of active, pending, and scheduled orders, including clinic medications orders, diagnostic test orders, procedure orders and consult orders; where the start date of the order is 45 days before the date of the Encounter or 45 days after the date of theEncounter. The data comes from all [place] treatment facilities. Test Date/Time Test Type Test Details Facility Name Nov 18, 2024 10:50 AM Consult Order OTOLARYNGO LOGY/ENT ONE Cons Senior Front End Developer's Choice [place] [facility] [place] [facility] Nov 29, 2024 07:45 AM Consult Order ON LICENSE OF [facility] Cons Senior Front End Developer's Choice [place] [facility] [facility] Dec 21, 2024 11:01 AM Consult Order CRITICAL ACCESS HOSPITALOPTOMETRY ROUTINE EYE EXAM Cons Senior Front End Developer's Choice [place] [facility] [facility] Dec 21, 2024 11:01 AM Consult Order ON LICENSE OF [facility] Cons Senior Front End Developer's Choice [place] [facility] [place] 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 Lab Results: +/- 30 days of the encounter This section includes the Chemistry and Hematology Lab Results on record with [place] for the patient. Radiology Reports and Pathology Reports are provided separately, in subsequent sections. Lab Results This section contains the Chemistry/Hematology Results that were resulted 30 days before or 30 daysafter the date of the Encounter. Date/Time Source Result Type Result - Unit Interpretation Reference Range Specimen Type Comment Dec 09, 2024 11:16 AM [facility] CBC BLOOD Specimen Type: BLOOD No comment entered. Ordering Provider: RENEE POWERS Report Released Date/Time: Dec 09, 2024 10:01 AM Reporting Lab[facility] [address] [facility] [address] Performing Lab: [facility] [address] [facility] [address] WBC 7.37 10*3/uL 4.50-11.00 RBC 4.64 10*6/uL 4.23-5.66 HGB 14.2 g/dL 12.8-17 HCT 41.5 39.2-50.4 MCV 89.4 fL 82-99 MCHC 34.2 g/dL 30.8-35.1 PLT 239 10*3/uL 140-360 MPV 9.8 fL 9.2-12.4 RDW-CV 12.6 12.0-16.0 MCH 30.6 pg 26.2-32.6 Dec 09, 2024 11:16 AM [facility] BASIC METABOLIC PANEL (non-fasting) SERUM Spe cimen Type: SERUM No comment entered. Ordering Provider: RENEE POWERS Report Released Date/Time: Dec 09, 2024 10:01 AM Reporting Lab: [facility] [address] [facility] [address] Performing Lab: [address] [address] UREA NITROGEN 16 mg/dL 7-25 GLUCOSE 100 mg/dL 65-100 SODIUM 139 mmol/L 135-145 POTASSIUM 4.8 mmol/L 3.5-5.0 CHLORIDE 107 mmol/L 100-110 CO2 22 meq/L 20-30 CALCIUM 9.1 mg/dL 8.5-10.2 CREATININE, Serum 0.88 mg/dL 0.50-1.40 eGFR(CKD-EPI 2020) >90 mL/min >60 Dec 09, 2024 11:16 AM [facility] LIPID PANEL, NON FASTING SERUM Specimen Type: SERUM No comment entered. Ordering Provider: RENEE POWERS Report Released Date/Time: Dec 09, 2024 10:01 AM Reporting Lab: [address] [address] Performing Lab: [address] [address] CHOLESTEROL 120 mg/dL TRIGLYCERIDE 44 mg/dL 0-150 LDL calculated 37 mg/dL 0-129 CHOL/HDL 1.6 HDL CHOLESTEROL 74 mg/dL H 40-60 Dec 09, 2024 11:16 AM [facility] LIVER FUNCTION SERUM Specimen Type: SERUM No comment entered. Ordering Provider: RENEE POWERS Report Released Date/Time: Dec 09, 2024 10:01 AM Reporting Lab: [place] [facility] [address] Performing Lab: [address] [address] PROTEIN,TOTAL 7.6 g/dL 6.0-8.3 ALBUMIN 4.2 g/dL 3.5-5.0 ALKALINE PHOSPHATASE 63 U/L 40-150 AST 32 U/L 5-34 ALT 37 U/L BILIRUBIN, TOTAL 0.5 mg/dL 0.2-1.2 Dec 09, 2024 11:16 AM [facility] PSA SERUM Specimen Type: SERUM No comment entered. Ordering Provider: RENEE POWERS Report Released Date/Time: Dec 09, 2024 10:01 AM Reporting Lab: [address] [address] Performing Lab: [address] [address] PSA 4.52 ng/mL H 0.00-4.00 Dec 09, 2024 11:16 AM [facility] VITAMIN B12 SERUM Specimen Type: SERUM No comment entered. Ordering Provider: RENEE POWERS Report Released Date/Time: Dec 09, 2024 10:01 AM Reporting Lab: [address] [address] Performing Lab: [address] [address] VITAMIN B12 1096 pg/mL H 200-900 Social History: Smoking Status (Most current) and Tobacco Use (All prior to encounter date) This section includes the most current, and the historical, smoking and tobacco- related health factors from the [place] facility where the Encounter took place. Current Smoking Status This section includes the most current smoking, or tobacco-related health factor, from the [place] facility where the Encounter took place. Date/Time Current Smoking Status Comment Facil ity Jun 22, 2024 11:00 AM [place]-TOBACCO NEVER USED [facility] Tobacco Use History This section includes a history of the smoking, or tobacco-related health factors, that were collected on or before the date of the Encounter. The data comes from the [place] facility where the Encounter took place. Date/Time Smoking Status/Tobacco Use Comment F acility Jul 17, 2023 11:00 AM VA-TOBACCO NEVER USED [place] [facility] [place] [facility] Jul 18, 2022 08:30 AM VA-TOBACCO NEVER USED [facility] [facility] Mar 27, 2021 11:30 AM VA-TOBACCO NEVER USED [facility] [facility] Nov 29, 2019 08:24 AM VA-TOBACCO NEVER USED [facility] [place] [facility] Sep 24, 2018 07:45 AM VA-TOBACCO NEVER USED [facility] [facility] Encounter Notes: All associated encounter notes This section contains the clinical notes associated to the Encounter. Date/Time Encounter Note(s) Provider Source Dec 22, 2024 09:22 AM PRIMARY CARE SECUR E MESSAGING: LOCAL TITLE: PRIMARY CARE SECURE MESSAGING STANDARD TITLE: PRIMARY CARE SECURE MESSAGING DATE OF NOTE: DEC 22, 2024@09:22 ENTRY DATE: DEC 22, 2024@09:22:57 AUTHOR: MARY CHILEL EXP COSIGNER: URGENCY: STATUS: COMPLETED ------Original Message -------- Sent: 12/22/2024 06:08 AM ET From: MATHIEU NUNEZ To: Janette POWERS_PRIMARY CARE_[facility] Subject: Medication:prescription renewals Greetings. I had a Primary Care appointment yesterday (. 12/21). I forgot to request prescription refills to be reset, currently no refills remaining. Please reset so that I can request refills online. thank you. -bw ------Original Message -------- Sent: 12/22/2024 09:22 AM ET From: MARY CHILEL To: MATHIEU NUNEZ Subject: Medication:prescription renewals Good morning Dr. Fabrice Cabral did renew several medications during your visit, they include: Omeprazole, Cyanocobalamin, Clopidogrel, Amlodipine and Rosuvastatin. If there are others you need please let me know. Respectfully, Mary Chilel RN /rain/ MARY CHILEL MSN, RN, CNL Primary Care RN Signed: 12/22/2024 09:22 [facility]L [facility]
--- OUTSIDE RECORDS SUMMARY | 2024-12-27 08:00 | XMS_ITS | Encounter Summary ---
Author Organization [facility] Address [address] [facility] [address] [place] [phone] Phone Care Team Providers Care Enroller Name Role Phone Roderick Avina NP Primary Care Provide r Encounter Details Date Type Department Care Team (Late st Contact Info) Description 10/28/2024 Procedure Pass [facility], [address] [place] [address] Social History Tobacco Use Types Packs/Day Years [...] Description 01/03/2025 8:45 AM EDT Office Visit [facility] [address] [place] [address] Sukh Salamanca DO [address] [address] [email or web address] documented as of this encounter Visit Diagnoses Not on filedocumented in this encounter Care Teams Enroller Relationship Specialty Start Date End Date Roderick Avina NP [address] [place] [address] PCP - General Nurse Practitioner 02/16/24 documented as of this encounter Additional Source Comments The information contained in this document represents components of the legal health record. It is not the complete legal health record.[facility]
--- OUTSIDE RECORDS SUMMARY | 2024-12-27 08:00 | XMS_ITS | Clinical Summary ---
Author Organization [facility] Address [address] [place] [phone] Phone Care Team Providers Care Tilting Saw Operator Name Role Phone Roderick Avina NP Primary Care Provide r Allergies Active Allergy Reactions Criticality Noted Date Comments Meperidine Hives,Swelling 02/24/2024 Lisinopril Fatigue Low 07/17/2023 Medications Medication Sig Dispensed Refills Start Date End Date Status amLODIPine (NORVASC) 10 MG tablet Take 10 mg by mouth daily. Active omeprazole (PRILOSEC) 20 MG tablet Take 20 mg by mouth daily. Active saw palmetto 450 mg Cap Take 450 mg by mouth 2 (two) times a day. Active rosuvastatin (CRESTOR) 40 MG tablet Take 1 tablet (40 mg total) by mouth daily. 90 tablet 3 02/17/2024 Active Additional Information Patient taking differently:40 mg OralNightly, Reported on 02/24/2024 clopidogrel (PLAVIX) 75 mg tablet Take 1 tablet (75 mg total) by mouth daily. 90 tablet 3 02/17/2024 Active Additional Information Patient taking differently:75 mg OralNightly, Reported on 02/24/2024 cyanocobalamin, vitamin B-12, 1000 MCG tablet Take 1,000 mcg by mouth daily. 01/21/2024 Active aspirin 81 mg chewable tablet Take 81 mg by mouth daily. Active Active Problems Problem Noted Date Diagnosed Date Syncope 02/24/2024 Assessment & Plan (03/23/2024 7:34 AM EDT): This patient had a vagal reaction after his procedure which was self-limiting Assessment & Plan (02/24/2024 9:55 PM EDT): Cardiology felt that this was likely a vasovagal syncope, but given the prolonged time that he was poorly responsive he was sent to the emergency department. Will monitor on telemetry. 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 Describes worsening symptoms. MRI brain with hyperintense signal in the left frontal lobe which could be a subacute infarct. He is on DAPT already with high intensity statin. ED discussed the case with teleneurology who felt that his symptoms could have been related to TIA in the setting of hypotension, but recommended continuing DAPT, high intensity statin and goal SBP 120-160 mmHg. If he were to develop new/worsening symptoms consideration should strongly be given to starting a heparin drip and transfer to [facility]. Of note, he does have a slight right facial droop. It appears the same on his license photo. Occlusion of left carotid artery 02/17/2024 Assessment & Plan (02/17/2024 12:04 PM EDT): As mentioned I will investigate and tailor more specific therapy with a carotid angiogram that will happen next week. In addition I started aspirin 81 mg daily Plavix 75 mg daily and high intensity statin therapy in the form of Crestor 40 mg a day. I explained the risk benefits and alternatives to him regarding this carotid angiogram Benign essential hypertension 02/17/2024 Assessment & Plan (03/23/2024 7:33 AM EDT): We will need to keep an eye on this goal should be less than 130 systolic Assessment & Plan (02/17/2024 12:04 PM EDT): This is being addressed by an escalating dose of Norvasc Pure hypercholesterolemia 02/17/2024 Assessment & Plan (03/23/2024 7:34 AM EDT): LDL should be less than 70 mg/dL by the guidelines. Assessment & Plan (02/17/2024 12:04 PM EDT): Regardless of his cholesterol I started high intensity statin therapy Encounters Date Type Department Care Team Description 11/13/2024 8:12 AM EST - 11/13/2024 11:59 PM EST Hospital Encounter [facility], [address] [place] [address] Roderick Avina NP Discharge Disposition: Home or Self Care 10/28/2024 Procedure Pass [address] [place] [address] 10/28/2024 Transcribe Orders Virtual Department [address] [place] [address] Roderick Avina, CINTIA Numbness and tingling in left arm (Primary Dx) from Last 3 Months Social History Tobacco Use Types Packs/Day Years Used Date Smoking Tobacco: Never Smokeless Tobacco: Never Tobacco Cessation:Counseling Given: Not Answered Education Answer Date Recorded Are you interested [...] your housing situation today? I have cleve ingrid 02/24/2024 How many times have you move [...] on file Sexual Orientation Not on file Last Filed Vital Signs Vital Sign Reading Time Taken Comments Blood Pressure 140/78 03/23/2024 7:16 AM EDT Pulse 81 03/23/2024 7:16 AM EDT Temperature 37 ??C (98.6 ??F) 02/25/2024 7:55 AM EDT Respiratory Rate 16 02/25/2024 7:55 AM EDT Oxygen Saturation 99% 03/23/2024 7:16 AM EDT Inhaled Oxygen Concentration - - Weight 94.3 kg (208 lb) 11/07/2024 3:34 PM EST Height 180.3 cm (5' 11 ) 11/07/2024 3:34 PM EST Body Mass Index 29.01 11/07/2024 3:34 PM EST Plan of Treatment Upcoming Encounters Date Type Department Care Team (Late st Contact Info) Description 01/03/2025 8:45 AM EDT Office Visit [facility] [address] [address] Sukh Salamanca DO 22 [facility] [address] [place] [phone] [email or web address] Due Date Last Done Comments DEPRESSION SCREENING 1972 HEPATITIS C SCREENING 02/01/1978 HIV ONE-TIME SCREENING (18-6 5 YEARS) 02/01/1978 COLOGUARD 02/01/2005 COLONOSCOPY 02/01/2005 COLORECTAL CANCER SCREENING 02/01/2005 FIT TEST 02/01/2005 FOBT 02/01/2005 SIGMOIDOSCOPY 02/01/2005 VIRTUAL COLONOSCOPY 02/01/2005 PNEUMOCOCCAL VACCINES (50+ years) (1 of 1 - PCV) 02/01/2010 RSV VACCINE (1 - Risk 60-74 years 1-dose series) 2020 INFLUENZA VACCINE (#1) 2024 COVID-19 VACCINE ( - 2023-2 5 season) 2024 BLOOD PRESSURE 09/23/2024 03/23/2024 SCREENING FOR DIABETES 02/24/2027 , 02/25/2024 Adult Td,Tdap Booster 10/11/2028 10/11/2018 ZOSTER VACCINES Completed 08/04/2019, 04/14/2019 SMOKING STATUS SCREENING (On ce After 26 Yrs) Completed 03/23/2024 HEPATITIS A VACCINES Aged Out No long er eligible based on patient's age to complete this topic HIB VACCINES Aged Out No longer eligi ble based on patient's age to complete this topic MENINGOCOCCAL VACCINES (ACWY) Aged Out No longer eligible based on patient's age to complete this topic Medical Devices Not on file Procedures Procedure Name Priority Date/Time Associated Diagnosis Comments MRI CERVICAL SPINE (NEURO) FOCUS WITHOUT CONTRAST Routine 11/13/2024 9:03 AM EST Numbness and tingling in left arm from Last 3 Months Results * MRI CERVICAL SPINE (NEURO) FOCUS WITHOUT CONTRAST (11/13/2024 9:03 AM EST) Anatomical Region Laterality Modality C-spine Magnetic Resonan ce 11/15/2024 11:2 5 AM EST Impressions 11/15/2024 11:32 AM EST Moderate degenerative changes of the cervical spine without evidence of high- grade spinal canal narrowing. Multiple areas of high-grade neuroforaminal narrowing are seen as described. Narrative 11/15/2024 11:32 AM EST MRI CERVICAL SPINE (NEURO) FOCUS WITHOUT CONTRAST Referring clinician's provided indication for this examination in Epic: Outside Radiology Order TECHNIQUE: MRI CERVICAL SPINE (NEURO) FOCUS WITHOUT CONTRAST COMPARISON: CT ANGIO HEAD WITH AND WITHOUT CONTRAST, CT ANGIO NECK WITH CO.. FINDINGS: Alignment and Vertebrae: There is mild straightening of the usual cervical lordosis. Minimal retrolisthesis of C3 on C4 and C6 on C7 are seen. This is similar to February 2024. ?? No compression fracture. Marrow: No suspicious bone marrow replacing lesion. Mild discogenic bone marrow edema is seen around C3-C4, C5-C6, and C6-C7 levels. Discs and Endplates: Mild and moderate intervertebral disc height loss and loss of normal T2 disc signal are seen along with endplate degenerative changes. ?? Spinal Cord: No spinal cord compression or signal abnormality. Soft Tissue: No prevertebral edema. Findings by level: C2-C3: Moderate left and mild right facet arthropathy is noted. These contribute to moderate left and mild right neuroforaminal narrowing. No spinal canal narrowing. C3-C4: Posterior disc osteophyte complex, moderate left and mild right facet arthropathy, and moderate bilateral uncovertebral hypertrophy are seen. These contribute to low-grade spinal canal narrowing and severe bilateral neuroforaminal narrowing. C4-C5: Diffuse disc bulge, moderate right and mild left facet arthropathy, and mild bilateral uncovertebral hypertrophy are seen. These contribute to low-grade spinal canal narrowing and mild bilateral neuroforaminal narrowing. C5-C6: Posterior disc osteophyte complex, mild bilateral facet arthropathy, and moderate bilateral uncovertebral hypertrophy are seen. These contribute to low- grade spinal canal narrowing and moderate bilateral neuroforaminal narrowing. C6-C7: Posterior disc osteophyte complex, moderate bilateral facet arthropathy, and moderate bilateral uncovertebral hypertrophy are seen. These contribute to low- grade spinal canal narrowing and severe bilateral neuroforaminal narrowing. C7-T1: Posterior disc osteophyte complex and moderate bilateral facet arthropathy are seen. These contribute to low-grade spinal canal narrowing and severe left and moderate right neuroforaminal narrowing. Procedure Note Verito Nelson MD - 11/15/2024 MRI CERVICAL SPINE (NEURO) FOCUS WITHOUT CONTRAST Referring clinician's provided indication for this examination in Epic:Outside Radiology Order TECHNIQUE: MRI CERVICAL SPINE (NEURO) FOCUS WITHOUT CONTRAST COMPARISON: CT ANGIO HEAD WITH AND WITHOUT CONTRAST, CT ANGIO NECK WITHCO.. FINDINGS: Alignment and Vertebrae: There is mild straightening of the usual cervicallordosis. Minimal retrolisthesis of C3 on C4 and C6 on C7 are seen. Thisis similar to February 2024. No compression fracture. Marrow: No suspicious bone marrow replacing lesion. Mild discogenic bonemarrow edema is seen around C3-C4, C5-C6, and C6-C7 levels. Discs and Endplates: Mild and moderate intervertebral disc height loss andloss of normal T2 disc signal are seen along with endplate degenerativechanges. Spinal Cord: No spinal cord compression or signal abnormality. Soft Tissue: No prevertebral edema. Findings by level: C2-C3: Moderate left and mild right facet arthropathy is noted. Thesecontribute to moderate left and mild right neuroforaminal narrowing. Nospinal canal narrowing. C3-C4: Posterior disc osteophyte complex, moderate left and mild rightfacet arthropathy, and moderate bilateral uncovertebral hypertrophy areseen. These contribute to low-grade spinal canal narrowing and severebilateral neuroforaminal narrowing. C4-C5: Diffuse disc bulge, moderate right and mild left facet arthropathy,and mild bilateral uncovertebral hypertrophy are seen. These contribute tolow-grade spinal canal narrowing and mild bilateral neuroforaminalnarrowing. C5-C6: Posterior disc osteophyte complex, mild bilateral facetarthropathy, and moderate bilateral uncovertebral hypertrophy are seen.These contribute to low- grade spinal canal narrowing and moderatebilateral neuroforaminal narrowing. C6-C7: Posterior disc osteophyte complex, moderate bilateral facetarthropathy, and moderate bilateral uncovertebral hypertrophy are seen.These contribute to low- grade spinal canal narrowing and severe bilateralneuroforaminal narrowing. C7-T1: Posterior disc osteophyte complex and moderate bilateral facetarthropathy are seen. These contribute to low-grade spinal canal narrowingand severe left and moderate right neuroforaminal narrowing. IMPRESSION: Moderate degenerative changes of the cervical spine without evidence ofhigh- grade spinal canal narrowing. Multiple areas of high-gradeneuroforaminal narrowing are seen as described. Roderick Avina WEAVER AXMINSTER IMG MR NAVA ZIEGLER from Last 3 Months Advance Directives For more information, please contact: [phone] (9AM - 5PM [facility], Thursday-Thursday) Documents on File Type Date Recorded Patient Lead [employer] Expl anation Healthcare Proxy 02/24/2024 * Full Code (Latest Code Status on File) Date Activated Date Inactivated Comments 02/24/2024 10:44 PM Question Answer Comments Code Status Confirmed With: Patient Care Teams Tilting Saw Operator Relationship Specialty Start Date End Date Roderick Avina NP [address] [place] [address] PCP - General Nurse Practitioner 02/16/24 Additional Source Comments The information contained in this document represents components of the legal health record. It is not the complete legal health record.[facility]
--- OUTSIDE RECORDS SUMMARY | 2024-12-27 08:00 | XMS_ITS ---
Author Name [facility] [place] [facility] [place] Address [address] [place] [address] Care Team Providers Care French Translator Name Role Phone RENEE AVINA Primary Care Provider Unavaila ble Selected Encounter This section includes the information on record at [place] for the Encounter. Date/Time Encounter Type Encounter Description Reason Provider Source Jun 22, 2024 11:00 AM OFFICE O/P EST LOW 20 MIN PRIMARY CARE/MEDICINE ICD-10-CM I65.29 Occlusion and stenosis of unspecified carotid artery KVNG AVINA AM Encounter Template Text not used by [place] Assessments - Encounter Diagnoses This section includes the primary and secondary diagnoses documented for the Encounter. Date/Time Primary/Secondary Diagnosis Diagnosis Name Provider Source Jun 22, 2024 12:45 PM PRIMARY Occlusion and stenosis of unspecified carotid artery EMERY AVINA [facility] Jun 22, 2024 12:45 PM SECONDARY Elevated prostate specific antigen [PSA] EMERY AVINA [facility] Jun 22, 2024 12:45 PM SECONDARY Essential (primary) hypertension EMERY AVINAM Susana [facility] Plan of Treatment: Future Appointments (+ 6 months) and Future Tests (+/- 45 days) The Plan of Treatment section includes future care activities for the patient from all [place] treatmentfacilities. This section includes future appointments and future orders which are active, pending or scheduled. Future Appointments This section includes appointments that were scheduled to occur 6 months from the date of the Encounter, up to a maximum of 20 appointments. The data comes from all [place] treatment facilities. Appointment Date/Time Appointment Type Appointme nt Facility Name Sep 05, 2024 08:30 AM [place]ULATORY [place]ICINE [place] [facility] [place] [facility] Sep 23, 2024 08:00 AM AM[place]ULATORY [place]IC[place] [facility] [place] [facility] Oct 26, 2024 11:30 AM AMBULATORY [place]IC[place] [facility] [place] [facility] Nov 13, 2024 08:15 AM AMBULATORY - [place]ICINE [place] [facility] [place] [facility] Nov 14, 2024 08:00 AM AMBULATORY - REHAB MEDICIN [place] [facility] [place] [facility] Nov 18, 2024 10:00 AM AMBULATORY - REHAB MEDICIN E [facility] [place] [facility] Dec 09, 2024 09:30 AM AMBULATORY - [place]ICINE [place] [facility] [place] [facility] Dec 09, 2024 10:30 AM [place]ORY [place] [facility] [place] [facility] Dec 21, 2024 10:30 AM AM[place]ULATORY [place] [facility] [place] [facility] Lab Results: +/- 30 days of the encounter This section includes the Chemistry and Hematology Lab Results on record with [place] for the patient. Radiology Reports and Pathology Reports are provided separately, in subsequent sections. Lab Results This section contains the Chemistry/Hematology Results that were resulted 30 days before or 30 daysafter the date of the Encounter. Date/Time Source Result Type Result - Unit Interpretation Reference Range Specimen Type Comment Jul 18, 2024 06:45 AM [facility] OCCULT BLOOD FIT X1 SCREEN(IN-HOUSE) FECES Sp ecimen Type: FECES No comment entered. Ordering Provider: RENEE AVINA Report Released Date/Time: Jun 22, 2024 11:02 AM Reporting Lab: [address] [address] Performing Lab: [address] [address] OCCULT BLOOD (FIT)#1 OF 1 Negative NEG Jun 21, 2024 09:43 AM [facility] CBC BLOOD Specimen Type: BLOOD No comment entered. Ordering Provider: RENEE AVINA Report Released Date/Time: Jun 10, 2024 08:13 AM Reporting Lab: [facility] [address] [facility] [address] Performing Lab: [facility] [address] [facility] [address] WBC 5.93 10*3/uL 4.50-11.00 RBC 4.71 10*6/uL 4.23-5.66 HGB 14.5 g/dL 12.8-17 HCT 42.2 39.2-50.4 MCV 89.6 fL 82-99 MCHC 34.4 g/dL 30.8-35.1 PLT 244 10*3/uL 140-360 RDW-CV 12.3 12.0-16.0 MCH 30.8 pg 26.2-32.6 Jun 21, 2024 09:43 AM [facility] BASIC METABOLIC PANEL (non-fasting) SERUM Spe cimen Type: SERUM No comment entered. Ordering Provider: RENEE AVINA Report Released Date/Time: Jun 10, 2024 08:13 AM Reporting Lab: [facility] [address] [facility] [address] Performing Lab: [address] [address] UREA NITROGEN 16 mg/dL 7-25 GLUCOSE 100 mg/dL 65-100 SODIUM 136 mmol/L 135-145 POTASSIUM 4.0 mmol/L 3.5-5.0 CHLORIDE 104 mmol/L 100-110 CO2 23 meq/L 20-30 CREATININE, Serum 0.89 mg/dL 0.50-1.40 eGFR(CKD-EPI 2020) >90 mL/min >60 Jun 21, 2024 09:43 AM [facility] LIPID PANEL, NON FASTING SERUM Specimen Type: SERUM No comment entered. Ordering Provider: RENEE AVINA Report Released Date/Time: Jun 10, 2024 08:13 AM Reporting Lab: [facility] [place] [address] [facility] [address] Performing Lab: [facility] [place] [address] [facility] [address] CHOLESTEROL 122 mg/dL TRIGLYCERIDE 65 mg/dL 0-150 LDL calculated 38 mg/dL 0-129 CHOL/HDL 1.7 HDL CHOLESTEROL 71 mg/dL H 40-60 Jun 21, 2024 09:43 AM [facility] [place] LIVER FUNCTION SERUM Specimen Type: SERUM No comment entered. Ordering Provider: RENEE AVINA Report Released Date/Time: Jun 10, 2024 08:13 AM Reporting Lab: [address] [address] Performing Lab: [address] [address] PROTEIN,TOTAL 7.4 g/dL 6.0-8.3 ALBUMIN 4.3 g/dL 3.5-5.0 ALKALINE PHOSPHATASE 61 U/L 40-150 AST 33 U/L 5-34 ALT 46 U/L BILIRUBIN, TOTAL 0.7 mg/dL 0.2-1.2 Jun 21, 2024 09:43 AM [facility] [place] PSA SERUM Specimen Type: SERUM No comment entered. Ordering Provider: RENEE AVINA Report Released Date/Time: Jun 10, 2024 08:13 AM Reporting Lab: [address] [address] Performing Lab: [address] [address] PSA 4.00 ng/mL 0.00-4.00 Vital Signs: All taken on the encounter date This section contains inpatient and outpatient Vital Signs collected on the date of the Encounter. Date/Time Temperature Pulse Blood Pressure Respiratory Rate SP02 Pain Height Weight Body Mass Index Source Jun 22, 2024 11:33 AM 138/[facility] Jun 22, 2024 11:05 AM 98.4 73 147/72 16 99 0 207 29 [facility] Social History: Smoking Status (Most current) and Tobacco Use (All prior to encounter date) This section includes the most current, and the historical, smoking and tobacco- related health factors from the [place] facility where the Encounter took place. Current Smoking Status This section includes the most current smoking, or tobacco-related health factor, from the [place] facility where the Encounter took place. Date/Time Current Smoking Status Comment Facil ity Jun 22, 2024 11:00 AM VA-TOBACCO NEVER USED [facility] [place] [facility] Tobacco Use History This section includes a history of the smoking, or tobacco-related health factors, that were collected on or before the date of the Encounter. The data comes from the [place] facility where the Encounter took place. Date/Time Smoking Status/Tobacco Use Comment F acility Jul 17, 2023 11:00 AM VA-TOBACCO NEVER USED [facility] [place] [facility] Jul 18, 2022 08:30 AM VA-TOBACCO NEVER USED [facility] [place] [facility] Mar 27, 2021 11:30 AM VA-TOBACCO NEVER USED [facility] [place] [facility] Nov 29, 2019 08:24 AM VA-TOBACCO NEVER USED [facility] [place] [facility] Sep 24, 2018 07:45 AM VA-TOBACCO NEVER USED [facility] [place] [facility] Encounter Notes: All associated encounter notes This section contains the clinical notes associated to the Encounter. Date/Time Encounter Note(s) Provider Source Jul 22, 2024 01:22 PM PRIMARY CARE NURSE PRACTITIONER OUTPATIENT NOTE: LOCAL TITLE: NURSE PRACTITIONER OUTPATIENT NOTE STANDARD TITLE: PRIMARY CARE NURSE PRACTITIONER OUTPATIENT NOTE DATE OF NOTE: JUL 22, 2024@13:22 ENTRY DATE: JUL 22, 2024@13:22:48 AUTHOR: RENEE AVINA COSIGNER: URGENCY: STATUS: COMPLETED [address] [address] [facility] [place] Toll Free Number Primary Care Telephone Assistance can be reached at extension [phone] [facility] scheduling can be reached at extension [phone] [facility] scheduling can be reached at ext [phone] JUL 22, 2024 MATHIEU NUNEZ [address] [place], [place], [address] Thank you for coming in for your tests. Your recent test results are as follows: LAB CHEMISTRY & HEMATOLOGY Collection DT Specimen Test Name Result Units Ref Range 07/18/2024 06:45 FECES FIT1/1 Negative Ref: NEG I have reviewed your results. I am pleased to let you know, stable findings. We will check this again in a year. Thank you for allowing me to be a part of your health care team. Please call if you have any questions or concerns. Sincerely, MAMIE Stafford DNP, REZA Nurse Practitioner Primary Care PACT Seven /es/ MAMIE Daly DNP, REZA Primary Care Nurse Practitioner Signed: 07/22/2024 13:24 Receipt Acknowledged By: 07/22/2024 15:10 /es/ PETER CABRERA [employer] MANAGER RENEE AVINA [facility] Jun 22, 2024 12:38 PM PRIMARY CARE NURSE PRACTITIONER OUTPATIENT NOTE: LOCAL TITLE: NURSE PRACTITIONER OUTPATIENT NOTE STANDARD TITLE: PRIMARY CARE NURSE PRACTITIONER OUTPATIENT NOTE DATE OF NOTE: JUN 22, 2024@12:38 ENTRY DATE: JUN 22, 2024@12:38:08 AUTHOR: RENEE AVINA EXP COSIGNER: URGENCY: STATUS: COMPLETED Chief complaint: Patient is a 64 year old [place]. HPI: Pleasant male [place] here to follow up. He is now following with [facility] for carotid artery stenosis, now on rosuvastatin, plavix and ASA. No new concerns. Allergies: DEMEROL, LISINOPRIL The following VA and Non-VA meds were reconciled with patient. The patient was educated on the use of the medications including indication and side effects. Active and Recently Outpatient Medications (excluding Supplies): Active Outpatient Medications Status 1) AMLODIPINE BESYLATE 10MG TAB TAKE ONE TABLET BY MOUTH ACTIVE ONCE DAILY FOR BLOOD PRESSURE/HEART, DO NOT TAKE WITH GRAPEFRUIT JUICE 2) CLOPIDOGREL BISULFATE 75MG TAB TAKE ONE TABLET BY ACTIVE MOUTH ONCE DAILY 3) CYANOCOBALAMIN 1000MCG TAB TAKE ONE TABLET BY MOUTH ACTIVE ONCE DAILY FOR VITAMIN SUPPLEMENTATION 4) OMEPRAZOLE 20MG EC CAP TAKE ONE CAPSULE BY MOUTH ACTIVE EVERY MORNING 30 MINUTES BEFORE BREAKFAST 5) ROSUVASTATIN CA 40MG TAB TAKE ONE TABLET BY MOUTH ACTIVE ONCE DAILY FOR CHOLESTEROL Review of Systems: Constitutional: (-)for Fevers, chills, weakness, nights sweats On examination: 98.4 F [36.9 C] (06/22/2024 11:05)138/80 (06/22/2024 11:33)73 (06/22/2024 11:05)16 (06/22/2024 11:05)0 (06/22/2024 11:05)BMI: 28.9207 lb [93.89 kg] (06/22/2024 11:05) is alert and oriented X3 Cardiovasc: 2plus [...] List is the source for the followin. Carotid artery stenosis - see above 2. Elevated PSA - he is being followed through urology 3. [id number] - better on repeat 4. Low Back Pain ([facility] [id number]) - stays active 5. Obesity ([facility] [id number]) - he has lost weight, making efforts with diet 6. Family history of cancer of colon - he is due for colonoscopy but opts to wait until after winter, he will do fit test Health Care Maintenance: declines flu vax Review of medial record = 5mins Time spent with Patient including shared decision making = 20 mins Post visit documentation = 5mins Total time = 30 mins Follow up visit in 6 mos. Medication Reconciliation: Outpatient: Has the patient been taking medications as documented in the EMLR? YES: The patient has been taking medications as documented in the EMLR. Essential Medication List for Review used to complete this medication reconciliation. INCLUDED IN THIS LIST: Alphabetical list of active outpatient prescriptions dispensed from this [place] (local) and dispensed from another [place] or [place] facility (remote) as well as [...] with a VA or non-VA provider. /rain/ Renee Avina DNP, ENVIRONMENTAL SPECIALIST-BC, CNL Primary Care Nurse Practitioner Signed: 06/22/2024 12:45 RENEE AVINA [place] [facility] Jun 22, 2024 11:27 AM PRIMARY CARE NURSE PRACTITIONER OUTPATIENT NOTE: LOCAL TITLE: NURSE PRACTITIONER OUTPATIENT NOTE STANDARD TITLE: PRIMARY CARE NURSE PRACTITIONER OUTPATIENT NOTE DATE OF NOTE: JUN 22, 2024@11:27 ENTRY DATE: JUN 22, 2024@11:27:38 AUTHOR: RENEE AVINA EXP COSIGNER: URGENCY: STATUS: COMPLETED LAB CHEMISTRY & HEMATOLOGY Collection DT Specimen Test Name Result Units Ref Range 06/21/2024 09:43 SERUM PSA 4.00 ng/mL 0.00 - 4.00 06/21/2024 09:43 SERUM CREATININE, Serum 0.89 mg/dL 0.50 - 1.40 eGFR(CKD-EPI 2020 >90 mL/min Ref: >=60 SODIUM 136 mmol/L 135 - 145 POTASSIUM 4.0 mmol/L 3.5 - 5.0 CHLORIDE 104 mmol/L 100 - 110 CO2 23 mEq/L 20 - 30 UREA NITROGEN 16 mg/dL 7 - 25 GLUCOSE 100 mg/dL 65 - 100 PROTEIN,TOTAL 7.4 g/dL 6.0 - 8.3 ALBUMIN 4.3 g/dL 3.5 - 5.0 ALK LINDA 61 U/L 40 - 150 AST 33 U/L 5 - 34 BILIRUBIN, TOTAL 0.7 mg/dL 0.2 - 1.2 CHOLESTEROL 122 mg/dL <7 - 199 TRIGLYCERIDE 65 mg/dL 0 - 150 LDL calculated 38 mg/dL 0 - 129 CHOL/HDL 1.7 ALT 46 U/L <6 - 55 HDL CHOLESTEROL 71 H mg/dL 40 - 60 06/21/2024 09:43 BLOOD WBC 5.93 K/cmm 4.50 - 11.00 RBC 4.71 M/cmm 4.23 - 5.66 HGB 14.5 g/dL 12.8 - 17 HCT 42.2 % 39.2 - 50.4 MCV 89.6 fl 82 - 99 MCH 30.8 pg 26.2 - 32.6 MCHC 34.4 g/dL 30.8 - 35.1 RDW-CV 12.3 % 12.0 - 16.0 PLT 244 K/cmm 140 - 360 /es/ Renee Avina DNP, ENVIRONMENTAL SPECIALIST-BC, CNL Primary Care Nurse Practitioner Signed: 06/22/2024 12:37 RENEE AVINA [place] [facility] Jun 22, 2024 11:07 AM PREVENTIVE MEDICINE NURSING NOTE: LOCAL TITLE: CLINICAL REMINDERS/NURSING STANDARD TITLE: PREVENTIVE MEDICINE NURSING NOTE DATE OF NOTE: JUN 22, 2024@11:07 ENTRY DATE: JUN 22, 2024@11:07:16 AUTHOR: LENORA WARD EXP COSIGNER: URGENCY: STATUS: COMPLETED Suicide Screen: C-SSRS Screening [place] Suicide Severity Rating Scale (C-SSRS) screener 1. Over the past month, have you wished you were or wished you could go to sleep and not wake up? No 2. Over the past month, have you had any actual thoughts of killing yourself? No 3. Over the past month, have you been thinking about how you might do this? Response not required due to responses to other questions. 4. Over the past month, have you had these thoughts and had some intention of acting on them? Response not required due to responses to other questions. 5. Over the past month, have you started to work out or worked out the details of how to kill yourself? Response not required due to responses to other questions. 6. If yes, at any time in the past month did you intend to carry out this plan? Response not required due to responses to other questions. 7. In your lifetime, have you ever done anything, started to do anything, or prepared to do anything to end your life (for example, collected pills, obtained a gun, gave away valuables, went to the roof but didn't jump)? No 8. If YES, was this within the past 3 months? Response not required due to responses to other questions. Depression Screening: Perform PHQ-2 A PHQ-2 screen was performed. The score was 0 which is a negative screen for depression. Over the past two weeks, how often have you been bothered by the following problems? 1. Little interest or pleasure in doing things Not at all 2. Feeling down, depressed, or hopeless Not at all Tobacco Use Screening: The patient has never used tobacco. Influenza Immunization: Deferral / Refusal The patient declines to receive the recommended dose of seasonal influenza vaccine. Immunization: INFLUENZA, UNSPECIFIED FORMULATION Refusal Reason: PATIENT DECISION Patient refuses all immunization(s) in the FLU group Date Documented: 06/22/24 11:08 Alcohol Use Screen (AUDIT-C): Alcohol Screen: SCREEN FOR ALCOHOL (AUDIT-C) An alcohol screening test (AUDIT-C) was negative (score=4). 1. How often did you have a drink containing alcohol in the past year? Consider a drink to be a 12 ounce can or bottle of regular beer, 8 ounces of malt liquor, a 5 ounce glass of table wine, or a 1.5 ounce shot of liquor (like scotch, gin, or vodka). Two to three times per week 2. How many drinks containing alcohol did you have on a typical day when you were drinking in the past year? Three or four drinks 3. How often did you have six or more drinks on one occasion in the past year? Never COVID-19 Immunization: Refused Moderna Monovalent COVID-19 vaccine Immunization: COVID-19 (MODERNA), MRNA, LNP-S, PF, 50 MCG/0.5 ML (AGES 12+ YEARS) Refusal Reason: PATIENT DECISION Patient refuses all immunization(s) in the COVID-19 group Date Documented: 06/22/24 11:08 /rain/ LENORA WARD LPN License Practical Nurse Signed: 06/22/2024 11:09 LENORA WARD [facility] [place] [facility] Jun 22, 2024 11:01 AM PREVENTIVE MEDICINE NURSING NOTE: LOCAL TITLE: CLINICAL REMINDERS/NURSING STANDARD TITLE: PREVENTIVE MEDICINE NURSING NOTE DATE OF NOTE: JUN 22, 2024@11:01 ENTRY DATE: JUN 22, 2024@11:01:48 AUTHOR: SYLVIA,LENORA EXP COSIGNER: URGENCY: STATUS: COMPLETED Avg Risk Colorectal Cancer Screen: AVERAGE RISK colorectal cancer screening is due based on information available to this clinical reminder FOBT/FIT (Fecal Immunochemical Testing) has been ordered. See order tab for details. /rain/ LENORA WARD LPN License Practical Nurse Signed: 06/22/2024 11:02 LENORA WARD [place] [facility] [place] [facility]
--- OUTSIDE RECORDS SUMMARY | 2024-12-27 08:00 | XMS_ITS ---
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 Date/Time Encounter Type Encounter Description Reason Provider Source January 21, 2024 10:00 AM OFFICE O/P EST LOW 20 MIN PRIMARY CARE/MEDICINE ICD-10-CM R97.20 Elevated prostate specific antigen [PSA] KVNG POWERS AM [place] Encounter Template Text not used by [place] Assessments - Encounter Diagnoses This section includes the primary and secondary diagnoses documented for the Encounter. Date/Time Primary/Secondary Diagnosis Diagnosis Name Provider Source January 21, 2024 12:41 PM PRIMARY Elevated prostate specific antigen [PSA] EMERY POWERS [facility] [place] [facility] January 21, 2024 12:41 PM SECONDARY Essential (primary) hypertension EMERY POWERS [facility] Plan of Treatment: Future Appointments (+ 6 months) and Future Tests (+/- 45 days) The Plan of Treatment section includes future care activities for the patient from all [place] treatmentfacilities. This section includes future appointments and future orders which are active, pending or scheduled. Future Appointments This section includes appointments that were scheduled to occur 6 months from the date of the Encounter, up to a maximum of 20 appointments. The data comes from all [place] treatment facilities. Appointment Date/Time Appointment Type Appointme nt Facility Name February 09, 2024 08:30 AM [facility] Feb 17, 2024 12:00 PM AMBULATORY - [place]ICINE [place] [facility] Jun 22, 2024 11:00 AM AMBULATORY - MEDICINE [facility] Lab Results: +/- 30 days of the encounter This section includes the Chemistry and Hematology Lab Results on record with [place] for the patient. Radiology Reports and Pathology Reports are provided separately, in subsequent sections. Lab Results This section contains the Chemistry/Hematology Results that were resulted 30 days before or 30 daysafter the date of the Encounter. Date/Time Source Result Type Result - Unit Interpretation Reference Range Specimen Type Comment January 21, 2024 10:20 AM [facility] C REACTIVE PROTEIN HS (WROX) SERUM Specimen T ype: SERUM Comment: Reference range changed on 03/04/11 [facility] reference ranges for ages >17 years: hsCRP in mg/L Risk According to AHA/CDC Guidelines <1.0 Lower relative cardiovascular risk. 1.0-3.0 Average cardiovascular risk. 3.1-10.0 Higher cardiovascular risk. Consider retesting in two weeks to exclude a benign transient elevation in the baseline CRP value secondary to infection or inflammation. >10.0 Persistent elevation, upon retesting, may be associated with infection and inflammation. Ordering Provider: RODERICK POWERS Report Released Date/Time: January 21, 2024 10:06 AM Reporting Lab: [facility] [address] [facility] [facility] [address] Performing Lab: [facility] [address] [address] C REACTIVE PROTEIN HS (WROX) 1.11 mg/L S ee eval. January 21, 2024 10:20 AM [facility] HEMOGLOBIN A1C PANEL BLOOD Specimen Type: BLO OD Comment: Values obtained from A1C measurements can vary. For atypical A1C assays, a reported value of 7.0 could actually be between 6.72 and 7.28 if measured by a reference method. A reported value of 9.0 could actually be between 8.73 and 9.27. Ref: http://www.ngsp.org/CAPdata.asp Ordering Provider: RODERICK POWERS Report Released Date/Time: January 21, 2024 10:06 AM Reporting Lab: [facility] [place] [facility] [address] [facility] [facility] [address] Performing Lab: [facility] [address] [address] HEMOGLOBIN A1C 5.5 4.0-5.6 January 21, 2024 10:20 AM [facility] SED RATE, AUTOMATED BLOOD Specimen Type: BLOO D No comment entered. Ordering Provider: RODERICK POWERS Report Released Date/Time: January 21, 2024 10:06 AM Reporting Lab: [facility] [address] [facility] [address] Performing Lab: [facility] [address] [address] SED RATE, AUTOMATED 5 mm/h 0-20 January 19, 2024 07:50 AM [facility] CBC BLOOD Specimen Type: BLOOD No comment entered. Ordering Provider: RODERICK POWERS Report Released Date/Time: Jan 08, 2024 10:37 AM Reporting Lab: [facility] [address] [facility] [address] Performing Lab: [facility] [address] [address] WBC 6.00 10*3/uL 4.50-11.00 RBC 4.93 10*6/uL 4.23-5.66 HGB 15.2 g/dL 12.8-17 HCT 44.6 39.2-50.4 MCV 90.5 fL 82-99 MCHC 34.1 g/dL 30.8-35.1 PLT 262 10*3/uL 140-360 RDW-CV 12.5 12.0-16.0 MCH 30.8 pg 26.2-32.6 January 19, 2024 07:50 AM [facility] VITAMIN B12 SERUM Specimen Type: SERUM No comment entered. Ordering Provider: RODERICK POWERS Report Released Date/Time: Jan 08, 2024 10:37 AM Reporting Lab: [facility] [address] [facility] [address] Performing Lab: [facility] [address] [facility] [facility] [address] VITAMIN B12 733 pg/mL 200-900 January 19, 2024 07:50 AM [facility] LIPID PANEL, NON FASTING SERUM Specimen Type: SERUM No comment entered. Ordering Provider: RODERICK POWERS Report Released Date/Time: Jan 08, 2024 10:37 AM Reporting Lab: [facility] [address] [facility] [address] Performing Lab: [address] [address] CHOLESTEROL 168 mg/dL TRIGLYCERIDE 55 mg/dL 0-150 LDL calculated 85 mg/dL 0-129 CHOL/HDL 2.3 HDL CHOLESTEROL 72 mg/dL H 40-60 January 19, 2024 07:50 AM [facility] BASIC METABOLIC PANEL (non-fasting) SERUM Spe cimen Type: SERUM No comment entered. Ordering Provider: RODERICK POWERS Report Released Date/Time: Jan 08, 2024 10:37 AM Reporting Lab: [facility] [address] [facility] [address] Performing Lab: [address] [address] UREA NITROGEN 17 mg/dL 7-25 GLUCOSE 119 mg/dL H 65-100 SODIUM 137 mmol/L 135-145 POTASSIUM 5.4 mmol/L H 3.5-5.0 CHLORIDE 104 mmol/L 100-110 CO2 26 meq/L 20-30 CREATININE, Serum 1.01 mg/dL 0.50-1.40 eGFR(CKD-EPI 2020) 83 mL/min >60 January 19, 2024 07:50 AM [facility] PSA SERUM Specimen Type: SERUM No comment entered. Ordering Provider: RODERICK POWERS Report Released Date/Time: Jan 08, 2024 10:37 AM Reporting Lab: [facility] [address] [facility] [facility] [address] Performing Lab: [facility] [address] [facility] [facility] [address] PSA 4.22 ng/mL H 0.00-4.00 January 19, 2024 07:50 AM [facility] LIVER FUNCTION SERUM Specimen Type: SERUM No comment entered. Ordering Provider: RODERICK POWERS Report Released Date/Time: Jan 08, 2024 10:37 AM Reporting Lab: [facility] [address] [facility] [address] Performing Lab: [facility] [address] [facility] [facility] [address] PROTEIN,TOTAL 7.1 g/dL 6.0-8.3 ALBUMIN 4.0 g/dL 3.5-5.0 ALKALINE PHOSPHATASE 56 U/L 40-150 AST 21 U/L 5-34 ALT 27 U/L BILIRUBIN, TOTAL 0.7 mg/dL 0.2-1.2 Vital Signs: All taken on the encounter date This section contains inpatient and outpatient Vital Signs collected on the date of the Encounter. Date/Time Temperature Pulse Blood Pressure Respiratory Rate SP02 Pain Height Weight Body Mass Index Source January 21, 2024 12:40 PM 148/86 [facility] January 21, 2024 09:45 AM 98.3 81 154/81 20 97 0 71 211 29 [facility] Social History: Smoking Status (Most current) and Tobacco Use (All prior to encounter date) This section includes the most current, and the historical, smoking and tobacco- related health factors from the [place] facility where the Encounter took place. Current Smoking Status This section includes the most current smoking, or tobacco-related health factor, from the [place] facility where the Encounter took place. Date/Time Current Smoking Status Comment Giulia lange Jul 17, 2023 11:00 AM [facility]-TOBACCO NEVER USED [facility] Tobacco Use History This section includes a history of the smoking, or tobacco-related health factors, that were collected on or before the date of the Encounter. The data comes from the [place] facility where the Encounter took place. Date/Time Smoking Status/Tobacco Use Comment F acility Jul 18, 2022 08:30 AM VA-TOBACCO NEVER USED [facility] Mar 27, 2021 11:30 AM VA-TOBACCO NEVER USED [facility] Nov 29, 2019 08:24 AM VA-TOBACCO NEVER USED [facility] Sep 24, 2018 07:45 AM VA-TOBACCO NEVER USED [facility] Radiology Reports: +/- 30 days of the encounter Radiology Reports For cases when an order for radiology services may have been completed prior to the date of the Encounter, the report list includes the Radiology Reports that were completed up to 30 days before dateof the Encounter. For cases when an order for radiology services may have been completed after the date of the Encounter, the report list also includes the Radiology Reports that were completed up to30 days after date of the Encounter. The data comes from all [place] treatment facilities. Date/Time Radiology Report Provider Source February 09, 2024 08:21 AM DUPLEX SCAN: NON-INVAS. CAROTID IMAGING: MAYRAMATHIEU CHIN [id number] -[id number] M Exm Date: FEBRUARY 09, 2024@08:21 Req Phys: RODERICK POWERS Loc: CWM/NO/PACT 7 (Req'g Loc) Img Loc: ULTRASOUND Service: Unknown [facility] , (Case 5 COMPLETE) DUPLEX SCAN: NON-INVAS. CAROTID I(US Detailed) CPT:18663 Reason for Study: vision changes Clinical History: left eye vision changes Report Status: Verified Date Reported: FEBRUARY 09, 2024 Date Verified: FEBRUARY 09, 2024 Optometry Doctor E-Sig:/ES/VINCENT FLORES JR Report: Study: Carotid ultrasound. Comparison: None. Findings: Right internal carotid artery peak systolic velocity is 127 cm/sec. Right internal carotid artery peak end-diastolic velocity is 29 cm/sec. ICA/CCA ratio is 0.9 . Vertebral artery flow is antegrade. The left common carotid artery and the left external carotid arteries are patent and normal. There is complete occlusion of the left internal carotid artery. Left artery flow is antegrade. A mild atherosclerotic plaque burden is seen in the right internal carotid artery and carotid bulb. Impression: Complete occlusion of the left internal carotid artery with estimated 50-69% stenosis of the right internal carotid artery. Vascular surgical consultation is recommended. Results of the study were reported via [employer] to the ordering provider Roderick Powers at 0935 hours on February 09, 2024. Consensus Panel Mandujano-Scale and Doppler US Criteria for Diagnosis of ICA Stenosis ([place], Radiology 07/2003) Normal: ICA PSV < 125 cm/sec Plaque Estimate None ICA/CCA PSV Ratio < 2.0 ICA EDV < 40 cm/sec < 50%: ICA PSV < 125 cm/sec Plaque Estimate < 50% ICA/CCA PSV Ratio < 2.0 ICA EDV < 40 cm/sec 50 - 69%: ICA PSV 125-230 cm/sec Plaque Estimate > or = 50% ICA/CCA PSV Ratio 2.0-4.0 ICA EDV 40-100 cm/sec > or = 70%, less than near occlusion: ICA PSV > 230 cm/sec Plaque Estimate > or = 50% ICA/CCA Ratio > 4.0 ICA EDV > 100 cm/sec Additional criteria from vascular surgery: > 80% EDV > 120 cm/sec Primary Diagnostic Code: Significant Abnormality Attention Needed Primary Interpreting Staff: VINCENT FLORES JR, Radiologist (Optometry Doctor) /VINCENT RUSSELL JR [facility] Encounter Notes: All associated encounter notes This section contains the clinical notes associated to the Encounter. Date/Time Encounter Note(s) Provider Source Feb 16, 2024 01:41 PM PRIMARY CARE NURSE PRACTITIONER OUTPATIENT NOTE: LOCAL TITLE: NURSE PRACTITIONER OUTPATIENT NOTE STANDARD TITLE: PRIMARY CARE NURSE PRACTITIONER OUTPATIENT NOTE DATE OF NOTE: FEB 16, 2024@13:41 ENTRY DATE: FEB 16, 2024@13:41:16 AUTHOR: RODERICK POWERS EXP COSIGNER: URGENCY: STATUS: COMPLETED t/c to , i explained carotid u/s findings, i advised vascular consult, he is in agreement. Consult placed, he is requesting [facility]. I will also send email to cc. /rain/ Roderick Powers DNP, COURT RECORDER-BC, CNL Primary Care Nurse Practitioner Signed: 02/16/2024 13:45 RODERICK POWERS [facility] February 09, 2024 02:11 PM PRIMARY CARE NURSE PRACTITIONER OUTPATIENT NOTE: LOCAL TITLE: NURSE PRACTITIONER OUTPATIENT NOTE STANDARD TITLE: PRIMARY CARE NURSE PRACTITIONER OUTPATIENT NOTE DATE OF NOTE: FEBRUARY 09, 2024@14:11 ENTRY DATE: FEBRUARY 09, 2024@14:11:47 AUTHOR: RODERICK POWERS EXP COSIGNER: URGENCY: STATUS: COMPLETED i attempted to contact the [place] to discuss carotid u/s, unable to leave message. I will try again. /rain/ Roderick Powers DNP, COURT RECORDER-BC, CNL Primary Care Nurse Practitioner Signed: 02/09/2024 14:12 RODERICK POWERS [place] [facility] January 21, 2024 12:36 PM PRIMARY CARE NURSE PRACTITIONER OUTPATIENT NOTE: LOCAL TITLE: NURSE PRACTITIONER OUTPATIENT NOTE STANDARD TITLE: PRIMARY CARE NURSE PRACTITIONER OUTPATIENT NOTE DATE OF NOTE: JANUARY 21, 2024@12:36 ENTRY DATE: JANUARY 21, 2024@12:36:03 AUTHOR: RODERICK POWERS EXP COSIGNER: URGENCY: STATUS: COMPLETED Chief complaint: Patient is a 63 year old [place]. HPI: Pleasant male [place] here to follow up. Feeling well. He does however report an intermittent issue with his left eye vision, becomes distorted/blurred, lasts 5 - 10 mins. No headaches. He is following in opthamology for what he was told is a minor cataract. I will check inflammantion markers, rule out GCA. I will also check carotid artery u/s. Allergies: DEMEROL, LISINOPRIL The following VA and Non-VA meds were reconciled with patient. The patient was educated on the use of the medications including indication and side effects. Active and Recently Outpatient Medications (excluding Supplies): Active Outpatient Medications Status 1) AMLODIPINE BESYLATE 10MG TAB TAKE ONE TABLET BY MOUTH ACTIVE ONCE DAILY FOR BLOOD PRESSURE/HEART, DO NOT TAKE WITH GRAPEFRUIT JUICE 2) CYANOCOBALAMIN 1000MCG TAB TAKE ONE TABLET BY MOUTH ACTIVE ONCE DAILY FOR VITAMIN SUPPLEMENTATION 3) OMEPRAZOLE 20MG EC CAP TAKE ONE CAPSULE BY MOUTH ACTIVE (S) EVERY MORNING 30 MINUTES BEFORE BREAKFAST Review of Systems: Constitutional: (-)for Fevers, chills, weakness, nights sweats On examination: 98.3 F [36.8 C] (01/21/2024 09:45)154/81 (01/21/2024 09:45)81 (01/21/2024 09:45) 20 (01/21/2024 09:45)0 (01/21/2024 09:45)BMI: 29.5211 lb [95.71 kg] (01/21/2024 09:45) [place] is alert and oriented X3 Eyes:No scleral icterus, lids normal, Pupils equal,round and reactive to light HEENT: External without scars, lesions or masses, TM's without erythema or perforations, Oropharynx without erythema or exudates or worrisome lesions Neck: supple without masses, trachea midline, ln not palpable, no thyromegaly Cardiovasc: 2plus carotids without bruits, no JVD [...] List is the source for the followin. Elevated PSA - discussed current labs, he is followed community urology 2. HTN - Hypertension ([facility] [id number]) - not at goal, will inc CCB from 5mg to 10mg, he will monitor at home. Review of medial record = 5mins Time spent with Patient including shared decision making = 20 mins Post visit documentation = 5mins Total time = 30 mins Follow up visit in Oct Alert to PACT RN - Labs as necessary to address clinical status. HTN Assess for Elevated BP>=140/90: Repeat blood pressure: 148/86 The patient's medication regimen was adjusted to improve blood pressure control. Medication Reconciliation: Outpatient: Has the patient been taking medications as documented in the EMLR? YES: The patient has been taking medications as documented in the EMLR. Essential Medication List for Review used to complete this medication reconciliation. INCLUDED IN THIS LIST: Alphabetical list of active outpatient prescriptions dispensed from this [facility] (local) and dispensed from another [place] or [facility] facility (remote) as well as [...] a VA or non-VA provider. /rain/ Roderick Powers DNP, COURT RECORDER-BC, CNL Primary Care Nurse Practitioner Signed: 01/21/2024 12:41 RODERICK POWERS [place] [facility]
--- OUTSIDE RECORDS SUMMARY | 2024-12-27 08:00 | XMS_ITS ---
Author Name [facility] Address [address] [place] [address] Care Team Providers Care Tank Assembler Name Role Phone RODERICK AVINA Primary Care Provider Unavaila ble Selected Encounter This section includes the information on record at NH for the Encounter. Date/Time Encounter Type Encounter Description Reason Provider Source Oct 26, 2024 11:30 AM OFFICE O/P EST MOD 30 MIN PRIMARY CARE/MEDICINE ICD-10-CM M50.10 Cervical disc disorder w radiculopathy, unsp cervical region KVNG AVINA AM [facility] Encounter Template Text not used by [place] Assessments - Encounter Diagnoses This section includes the primary and secondary diagnoses documented for the Encounter. Date/Time Primary/Secondary Diagnosis Diagnosis Name Provider Source Oct 26, 2024 12:02 PM PRIMARY Cervical disc disorder w radiculopathy, unsp cervical region KVNG AVINA [facility] [place] [facility] Plan of Treatment: Future Appointments (+ 6 months) and Future Tests (+/- 45 days) The Plan of Treatment section includes future care activities for the patient from all [place] treatmentfacilities. This section includes future appointments and future orders which are active, pending or scheduled. Future Appointments This section includes appointments that were scheduled to occur 6 months from the date of the Encounter, up to a maximum of 20 appointments. The data comes from all [place] treatment facilities. Appointment Date/Time Appointment Type Appointme nt Facility Name Nov 13, 2024 08:15 AM [facility] [place] [facility] Nov 14, 2024 08:00 AM [facility]BULATORY [facility] [place] Nov 18, 2024 10:00 AM AMBULATORY - [facility]IC[facility] Dec 09, 2024 09:30 AM [facility] [place] [facility] Dec 09, 2024 10:30 AM [facility] [place] [facility] Dec 21, 2024 10:30 AM [facility] [place] [facility] Dec 27, 2024 08:15 AM [facility] [place] [facility] January 31, 2025 09:00 AM [facility] [place] [facility] Active, Pending, and Scheduled Orders This section includes a listing of several types of active, pending, and scheduled orders, including clinic medications orders, diagnostic test orders, procedure orders and consult orders; where the start date of the order is 45 days before the date of the Encounter or 45 days after the date of theEncounter. The data comes from all [place] treatment facilities. Test Date/Time Test Type Test Details Facility Name Oct 26, 2024 11:47 AM Consult Order COMMUNITY CARE-MRI [facility] [employer] [facility] [place] [facility] Nov 18, 2024 10:50 AM Consult Order OTOLARYNGO LOGY/ENT ONE [facility] [employer] [facility] [place] [facility] Nov 29, 2024 07:45 AM Consult Order COMMUNITY CARE-NEUROLOGY [facility] [employer] [facility] [place] [facility] Vital Signs: All taken on the encounter date This section contains inpatient and outpatient Vital Signs collected on the date of the Encounter. Date/Time Temperature Pulse Blood Pressure Respiratory Rate SP02 Pain Height Weight Body Mass Index Source Oct 26, 2024 11:59 AM 132/78 [facility] [place] [facility] Oct 26, 2024 11:25 AM 98.3 72 142/84 20 99 5 71 205 29 [facility] [place] [facility] Social History: Smoking Status (Most current) and Tobacco Use (All prior to encounter date) This section includes the most current, and the historical, smoking and tobacco- related health factors from the [place] facility where the Encounter took place. Current Smoking Status This section includes the most current smoking, or tobacco-related health factor, from the [place] facility where the Encounter took place. Date/Time Current Smoking Status Comment Facil ity Jun 22, 2024 11:00 AM VA-TOBACCO NEVER USED [facility] [place] [facility] Tobacco Use History This section includes a history of the smoking, or tobacco-related health factors, that were collected on or before the date of the Encounter. The data comes from the [place] facility where the Encounter took place. Date/Time Smoking Status/Tobacco Use Comment F acility Jul 17, 2023 11:00 AM VA-TOBACCO NEVER USED [facility] [place] [facility] Jul 18, 2022 08:30 AM VA-TOBACCO NEVER USED [facility] [place] [facility] Mar 27, 2021 11:30 AM VA-TOBACCO NEVER USED [facility] [place] [facility] Nov 29, 2019 08:24 AM VA-TOBACCO NEVER USED [facility] [place] [facility] Sep 24, 2018 07:45 AM VA-TOBACCO NEVER USED [facility] [place] [facility] Encounter Notes: All associated encounter notes This section contains the clinical notes associated to the Encounter. Date/Time Encounter Note(s) Provider Source Nov 29, 2024 02:14 PM PRIMARY CARE NURSE PRACTITIONER OUTPATIENT NOTE: LOCAL TITLE: NURSE PRACTITIONER OUTPATIENT NOTE STANDARD TITLE: PRIMARY CARE NURSE PRACTITIONER OUTPATIENT NOTE DATE OF NOTE: NOV 29, 2024@14:14 ENTRY DATE: NOV 29, 2024@14:14:56 AUTHOR: RODERICK AVINA EXP COSIGNER: URGENCY: STATUS: COMPLETED i lm to discuss MRI. /rain/ Roderick Avina DNP, SUPERVISOR PLASTERING-BC, CNL Primary Care Nurse Practitioner Signed: 11/29/2024 14:15 RODERICK AVINA [facility] [place] [facility] Oct 26, 2024 11:54 AM PRIMARY CARE NURSE PRACTITIONER OUTPATIENT NOTE: LOCAL TITLE: NURSE PRACTITIONER OUTPATIENT NOTE STANDARD TITLE: PRIMARY CARE NURSE PRACTITIONER OUTPATIENT NOTE DATE OF NOTE: OCT 26, 2024@11:54 ENTRY DATE: OCT 26, 2024@11:54:18 AUTHOR: RODERICK AVINA COSIGNER: URGENCY: STATUS: COMPLETED Chief complaint: Patient is a 64 year old [place]. HPI: Interim Visit. About 5 weeks ago he woke up with pain in lower neck, left shoulder blade that now radiates into left arm down to fingers and notably having numbness and tingling that is impeding the desterity of his thumb and index finger. He does not recall any triggering provocation. Exam, full rom, +cms. Allergies: DEMEROL, LISINOPRIL The following VA and [...] ONCE ACTIVE DAILY FOR VITAMIN SUPPLEMENTATION 4) OMEPRAZOLE 20MG EC CAP TAKE ONE CAPSULE BY MOUTH EVERY ACTIVE MORNING 30 MINUTES BEFORE BREAKFAST 5) ROSUVASTATIN CA 40MG TAB TAKE ONE TABLET BY MOUTH ONCE DAILY ACTIVE FOR CHOLESTEROL Review of Systems: Constitutional: (-)for Fevers, chills, weakness, nights sweats On examination: 98.3 F [36.8 C] (10/26/2024 11:25)142/84 (10/26/2024 11:25)72 (10/26/2024 11:25)20 (10/26/2024 11:25)5 (10/26/2024 11:25)BMI: 28.7205 lb [92.99 kg] (10/26/2024 11:) is alert and oriented X3 Cardiovasc: 2plus [...] Problem List is the source for the following: cervicalgia with radiculopathy - refer to OT, will get MRI C spine. Today I spent 30 minutes on some or all of the following: chart review, history, physical examination, treatment planning, education and counseling of the patient/family/medicare specialist, placing orders, communicating with other health care providers, completing health and wellness screenings (see below) and documentation in the electronic health record. Follow up visit as scheduled. HTN Assess for Elevated BP>=140/90: Repeat blood pressure: 132/78 The patient's blood pressure is usually adequately controlled. No medication changes are indicated at this time. Sexual Orientation: The patient thinks of their sexual orientation as: Straight or Heterosexual Medication Reconciliation: Outpatient: Has the patient been taking medications as documented in the EMLR? YES: The patient has been taking medications as documented in the EMLR. Essential Medication List for Review used to complete this medication reconciliation. INCLUDED IN THIS LIST: Alphabetical list of active outpatient prescriptions dispensed from this NH (local) and dispensed from another [facility] or [facility] facility (remote) as well as [...] or non-VA provider. /rain/ Roderick Avina DNP, SUPERVISOR PLASTERING-BC, CNL Primary Care Nurse Practitioner Signed: 10/26/2024 12:00 RODERICK AVINA [facility] [place] [facility] Oct 26, 2024 11:30 AM PREVENTIVE MEDICINE NURSING NOTE: LOCAL TITLE: CLINICAL REMINDERS/NURSING STANDARD TITLE: PREVENTIVE MEDICINE NURSING NOTE DATE OF NOTE: OCT 26, 2024@11:30 ENTRY DATE: OCT 26, 2024@11:30:57 AUTHOR: BARRIE GLOVER COSIGNER: URGENCY: STATUS: COMPLETED Advance Directive Screen MH AD: Patient does not have an Advance Directive completed and is requesting more information. A consult was sent to Social Work Services at this visit so that an appointment can be made with the patient to review the advance directive. The patient received education about Advance Directives and written notification of his/her rights. Homelessness/Food Insecurity Screen: In the past 2 months, have you been living in stable housing that you own, rent, or stay in as part of a household? Yes - Living in stable housing. Are you worried or concerned that in the next 2 months you may NOT have stable housing that you own, rent, or stay in as part of a household? No - Not worried about housing near future The reports the following: Within the past 12 months, you worried whether your food would run out before you got money to buy more. Never true Within the past 12 months, the food you bought just didn't last and you didn't have money to get more. Never true /es/ Barrie Glover, Health Identifier Horse PHYSICIAN VICE PRESIDENT,PRIMARY CARE Signed: 10/26/2024 11:31 BARRIE GLOVER [facility]
--- NOTE | 2024-12-27 08:02 | EMG_ITS ---
Left median and ulnar motor and sensory studies were performed. Left radial sensory and median and lateral antecubital brachial sensory studies were performed and needle examination was performed. 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 This was with no evidence of any proximal pathology. 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 A formal neurology consultation is recommended for further evaluation and management. MD JAZIEL Pierre/JENNIFER / [id number]
== END 2024-12-27 07:55 | disposition home or self-care (01) ==
LOC: HO.NEURO 07:54
PROVIDERS: PCP Nurse Practitioner Family; Visit Provider Nurse Practitioner Family
DX: G56.12 Other lesions of median nerve, left upper limb (principal)
CPT/HCPCS: 95860; 95886; 95910